=== PATIENT | female | born 1965 | race Two or more races ===

== ENCOUNTER 2017-04-02 14:10 | Inpatient (IN) | payer MEDICAID ==
[~2017-04-02] VITALS: Ht 162.6 cm; Wt 65.5 kg
[~2017-04-02 14:10] MED LIST: ACET-3068 PO; BREX1TAB PO; BUPR300T53 PO; CYAN-19 PO; DOCU-28 PO; GABA600T2 PO; METO10TA3 PO; PANT40SU2 PO; PHE12.5T PO; VENL75CA61 PO; [UNRECOGNIZED DRUG - CODE] PO
[2017-04-02] MEDS ORDERED: ondansetron/PF 4mg/2ml inj IV ONE (15:15)
[2017-04-02 15:50] LABS: BASOPHILS # (AUTO) 0.1 X10'3 (0-0.2); BASOPHILS % (AUTO) 1.2 % (0-1); EOSINOPHILS # (AUTO) 0.1 X10'3 (0-0.9); EOSINOPHILS % (AUTO) 1.3 % (0-6); HEMATOCRIT 33.4 % (35.0-45.0); HEMOGLOBIN 10.9 g/dl (12.0-16.0); LYMPHOCYTES # (AUTO) 2.8 X10'3 (1.1-4.8); LYMPHOCYTES % (AUTO) 41.7 % (21-51); MEAN CORPUSCULAR HGB CONC 32.5 % (33.0-36.5); MEAN CORPUSCULAR VOLUME 83.1 FL (78-98); MEAN PLATELET VOLUME 8.5 FL (7.4-10.4); MONOCYTES # (AUTO) 0.4 X10'3 (0-0.9); MONOCYTES % (AUTO) 6.1 % (2-12); NEUTROPHILS # (AUTO) 3.3 X10'3 (1.8-7.7); NEUTROPHILS % (AUTO) 49.7 % (42-75); PLATELET COUNT 335 X10'3 (140-440); RED BLOOD COUNT 4.01 X10'6 (4.20-5.60); RED CELL DISTRIBUTION WIDTH 21.9 % (11.5-14.5); WHITE BLOOD COUNT 6.7 X10'3 (4.5-11.0)
[2017-04-02 16:08] LABS: ALANINE AMINOTRANSFERASE 49 U/L (12-78); ALBUMIN 1.6 G/DL (3.4-5.0); ALBUMIN/GLOBULIN RATIO 0.3 (1.1-1.5); ALKALINE PHOSPHATASE 159 IU/L (46-116); ANION GAP 5 (8-16); ASPARTATE AMINO TRANSFERASE 58 U/L (10-37); BILIRUBIN,TOTAL 1.2 MG/DL (0.1-1.0); BLOOD UREA NITROGEN 15 MG/DL (7-18); BUN/CREATININE RATIO 21.7 (6.6-38.0); CALCIUM 7.4 MG/DL (8.5-10.1); CHLORIDE 99 MMOL/L (99-107); CREATININE 0.69 MG/DL (0.40-0.90); GLUCOSE 60 MG/DL (70-104); LIPASE 81 U/L (73-393); SODIUM 135 MMOL/L (135-145); TOTAL CARBON DIOXIDE 30.8 MMOL/L (24-32); TROPONIN I < 0.04 NG/ML (0.0-0.05); eGFR 90 ML/MIN
[2017-04-02] MEDS ORDERED: normal saline 500ml IV soln 1,000 ML IV ONE (17:00)
[2017-04-02] MEDS: potassium 10mEq/100ml NS w/LIDOcaine (10mg/bag) IV SCH ×2 (17:10→18:44)
[2017-04-02 18:25] LABS: OCCULT BLOOD STOOL NEGATIVE (Neg)
[2017-04-02] MEDS ORDERED: proMETHazine 25mg tablet PO ONE (18:50)
[2017-04-02] MEDS ORDERED: dextrose 50%-water 50ml dispensing syringe IV ONE ×2 (20:30→21:25)
[2017-04-02 21:15] LABS: BASOPHILS # (AUTO) 0.1 X10'3 (0-0.2); EOSINOPHILS % (AUTO) 0.4 % (0-6); HEMATOCRIT 31.3 % (35.0-45.0); HEMOGLOBIN 10.3 g/dl (12.0-16.0); LYMPHOCYTES # (AUTO) 2.9 X10'3 (1.1-4.8); LYMPHOCYTES % (AUTO) 45.6 % (21-51); MEAN CORPUSCULAR HEMOGLOBIN 27.2 PG (27.0-31.0); MEAN CORPUSCULAR HGB CONC 32.8 % (33.0-36.5); MEAN PLATELET VOLUME 8.4 FL (7.4-10.4); MONOCYTES # (AUTO) 0.2 X10'3 (0-0.9); MONOCYTES % (AUTO) 3.4 % (2-12); NEUTROPHILS # (AUTO) 3.2 X10'3 (1.8-7.7); NEUTROPHILS % (AUTO) 49.6 % (42-75); PLATELET COUNT 275 X10'3 (140-440); RED BLOOD COUNT 3.77 X10'6 (4.20-5.60); RED CELL DISTRIBUTION WIDTH 21.3 % (11.5-14.5); WHITE BLOOD COUNT 6.4 X10'3 (4.5-11.0)
[2017-04-02 21:24] LABS: D-DIMER 0.52 MG/L FEU (0-0.50); INR 1.4 INR; PROTHROMBIN TIME 14.5 SECONDS (9.0-12.0)
[2017-04-02] MEDS ORDERED: normal saline 1000ml 1,000 ML IV ONE (21:25)
[2017-04-02 21:27] LABS: ALANINE AMINOTRANSFERASE 41 U/L (12-78); ALBUMIN 1.4 G/DL (3.4-5.0); ALBUMIN/GLOBULIN RATIO 0.3 (1.1-1.5); ALKALINE PHOSPHATASE 150 IU/L (46-116); ANION GAP 8 (8-16); ASPARTATE AMINO TRANSFERASE 57 U/L (10-37); BLOOD UREA NITROGEN 14 MG/DL (7-18); BUN/CREATININE RATIO 17.3 (6.6-38.0); CALCIUM 6.6 MG/DL (8.5-10.1); CHLORIDE 103 MMOL/L (99-107); CREATININE 0.81 MG/DL (0.40-0.90); GLUCOSE 185 MG/DL (70-104); POTASSIUM 3.4 MMOL/L (3.5-5.1); SODIUM 137 MMOL/L (135-145); TOTAL PROTEIN 6.1 G/DL (6.4-8.2); eGFR 75 ML/MIN
[2017-04-02 21:35] LABS: MAGNESIUM 1.4 MG/DL (1.5-2.4)
[2017-04-02 22:02] LABS: CLARITY,URINE TURBID (Clear); COLOR,URINE YELLOW (Yellow); GLUCOSE, URINE 100 mg/dl (Neg); KETONES,URINE 15 mg/dl (Neg); LEUKOCYTE ESTERASE ,URINE NEGATIVE (Neg); NITRITES, URINE NEGATIVE (Neg); OCCULT BLOOD,URINE TRACE-LYSED (Neg); PH,URINE 6.5 (4.8-8.0); PROTEIN,URINE 30 mg/dl (Neg); UROBILINOGEN,URINE >=8.0 E.U/dL (0.2-1.0)
[2017-04-02 22:20] LABS: UA COLLECTION TYPE STRAIGHT CATH
[2017-04-02 22:26] LABS: BACTERIA,URINE 4+ /HPF (Neg); MUCUS STRANDS MODERATE /LPF (Neg); RBC,URINE NONE SEEN /HPF (0-2); SQUAMOUS EPITHELIAL CELL,UR FEW /LPF (FEW)
[2017-04-02] MEDS ORDERED: diphenhydrAMINE 25mg capsule PO PRN (23:05)
[2017-04-02] MEDS ORDERED: potassium Cl 20 mEq SR tablet PO PRN (23:05)
[2017-04-02] MEDS ORDERED: mag hydrox/Alum hydrox/simeth 30ml oral suspension PO PRN (23:05)
[2017-04-02] MEDS ORDERED: potassium Cl 40MEQ/NS 500ml 500 ML IV PRN ×2 (23:05)
[2017-04-02] MEDS ORDERED: metoclopramide 5 mg/ml inj IV PRN (23:05)
[2017-04-02] MEDS ORDERED: acetaminophen 325mg tablet PO PRN ×2 (23:05)
[2017-04-02] MEDS ORDERED: magnesium 2GM in 50ml NS 50 ML IV PRN (23:05)
[2017-04-02] MEDS ORDERED: morphine 5 MG/ML injection IV PRN ×2 (23:05)
[2017-04-02] MEDS ORDERED: HYDROcodone/acetaminophen 10/325mg tab PO PRN (23:05)
[2017-04-02] MEDS ORDERED: magnesium hydroxide 30ml (MOM) UD suspension PO PRN (23:05)
[2017-04-02] MEDS ORDERED: diphenhydrAMINE 50 mg/ml inj IV PRN (23:05)
[2017-04-02] MEDS ORDERED: magnesium 4gm in 100ml NS 100 ML IV PRN (23:05)
[2017-04-02] MEDS ORDERED: acetaminophen 650mg rectal suppository RC PRN (23:05)
[2017-04-02 23:39] LABS: LIPASE 108 U/L (73-393)
[2017-04-03] MEDS ORDERED: heparin 10,000 units/1 ML INJ IV PRN ×2 (00:05→01:55)
[2017-04-03] MEDS ORDERED: heparin 10,000 units/1 ML INJ IV ONE ×2 (00:05→01:55)
[2017-04-03] MEDS ORDERED: iohexol 350MG/ML 100ml bottle IV ONE (01:03)
[2017-04-03 01:39] LABS: MAGNESIUM 1.5 MG/DL (1.5-2.4)
[2017-04-03 01:40] LABS: TROPONIN I 0.16 NG/ML (0.0-0.05)
[2017-04-03] MEDS: dextrose 5%-1/2 normal saline 1,000 ML IV SCH ×3 (02:04→19:05)
[2017-04-03] MEDS: CefTRIAXone 1 gm/50ml D5W ADV 50 ML IV SCH ×2 (02:42→13:30)
[2017-04-03] MEDS: HYDROcodone/acetaminophen 5mg/325mg tablet PO PRN ×2 (02:48→17:05)
[2017-04-03] MEDS: proMETHazine 25mg tablet PO SCH ×4 (02:49→20:41)
[2017-04-03 02:52] LABS: BASOPHILS # (AUTO) 0.1 X10'3 (0-0.2); BASOPHILS % (AUTO) 0.8 % (0-1); EOSINOPHILS # (AUTO) 0.1 X10'3 (0-0.9); EOSINOPHILS % (AUTO) 1.3 % (0-6); HEMATOCRIT 33.9 % (35.0-45.0); LYMPHOCYTES # (AUTO) 1.5 X10'3 (1.1-4.8); LYMPHOCYTES % (AUTO) 19.6 % (21-51); MEAN CORPUSCULAR HEMOGLOBIN 27.4 PG (27.0-31.0); MEAN CORPUSCULAR HGB CONC 32.6 % (33.0-36.5); MEAN PLATELET VOLUME 8.5 FL (7.4-10.4); MONOCYTES # (AUTO) 0.3 X10'3 (0-0.9); MONOCYTES % (AUTO) 3.9 % (2-12); NEUTROPHILS # (AUTO) 5.6 X10'3 (1.8-7.7); NEUTROPHILS % (AUTO) 74.4 % (42-75); PLATELET COUNT 305 X10'3 (140-440); RED BLOOD COUNT 4.03 X10'6 (4.20-5.60); RED CELL DISTRIBUTION WIDTH 21.4 % (11.5-14.5); WHITE BLOOD COUNT 7.5 X10'3 (4.5-11.0)
[2017-04-03] MEDS: ondansetron/PF 4mg/2ml inj IV PRN (02:53)
[2017-04-03 03:03] VITALS: BP 110/76
[2017-04-03 03:03] LABS: INR 1.4 INR; PARTIAL THROMBOPLASTIN TIME 32 SECONDS (22-32); PROTHROMBIN TIME 14.1 SECONDS (9.0-12.0)
[2017-04-03] MEDS: pantoprazole 40mg Tablet.DR PO SCH (07:31)
[2017-04-03] MEDS: docusate sod 100mg capsule PO SCH ×3 (07:32→20:41)
[2017-04-03] MEDS: atorvastatin 10mg tablet PO SCH (07:34)
[2017-04-03] MEDS: gabapentin 300mg capsule PO SCH ×3 (07:34→20:41)
[2017-04-03 07:45] VITALS: BP 105/51
[2017-04-03] MEDS ORDERED: heparin, porcine 5000 units/ml vial SQ SCH (08:00)
[2017-04-03] MEDS ORDERED: venlafaxine XR 75mg capsule (Q24H) PO SCH ×2 (08:00)
[2017-04-03] MEDS ORDERED: BREXPIPRAZOLE 1 MG PO SCH (08:00)
[2017-04-03] MEDS ORDERED: buPROPion SR 150mg tablet PO SCH (08:00)
[2017-04-03] MEDS: K and/or MAG REPLACEMENT MC SCH (08:00)
[2017-04-03 11:00] VITALS: BP 91/61
[2017-04-03] MEDS: aspirin 325mg tablet PO SCH (13:31)
[2017-04-03] MEDS: magnesium Cl slow-release 64mg tablet PO PRN (13:31)
[2017-04-03] MEDS: potassium Cl 20 mEq SR tablet PO PRN ×2 (13:31→20:41)
[2017-04-03] MEDS: LACTOSE-FREE FOOD 237ML (BOOST) PO SCH (18:33)
[2017-04-03 19:00] VITALS: BP 122/71
[2017-04-03] MEDS: temazepam 15mg capsule PO PRN (20:48)
[2017-04-03 23:00] VITALS: BP 96/68
[2017-04-04] MEDS: dextrose 5%-1/2 normal saline 1,000 ML IV SCH ×3 (02:05→22:50)
[2017-04-04] MEDS: magnesium Cl slow-release 64mg tablet PO PRN (02:06)
[2017-04-04] MEDS: potassium Cl 20 mEq SR tablet PO PRN (02:06)
[2017-04-04] MEDS: proMETHazine 25mg tablet PO SCH ×4 (02:06→21:03)
[2017-04-04 03:00] VITALS: BP 105/70
[2017-04-04 06:41] LABS: BASOPHILS % (AUTO) 0.3 % (0-1); EOSINOPHILS % (AUTO) 0.8 % (0-6); HEMATOCRIT 34.7 % (35.0-45.0); HEMOGLOBIN 11.1 g/dl (12.0-16.0); LYMPHOCYTES # (AUTO) 1.5 X10'3 (1.1-4.8); LYMPHOCYTES % (AUTO) 24.9 % (21-51); MEAN CORPUSCULAR HEMOGLOBIN 27.1 PG (27.0-31.0); MEAN CORPUSCULAR HGB CONC 31.9 % (33.0-36.5); MEAN CORPUSCULAR VOLUME 84.7 FL (78-98); MEAN PLATELET VOLUME 9.4 FL (7.4-10.4); MONOCYTES # (AUTO) 0.3 X10'3 (0-0.9); MONOCYTES % (AUTO) 4.2 % (2-12); NEUTROPHILS # (AUTO) 4.2 X10'3 (1.8-7.7); NEUTROPHILS % (AUTO) 69.8 % (42-75); PLATELET COUNT 264 X10'3 (140-440); RED CELL DISTRIBUTION WIDTH 21.8 % (11.5-14.5)
[2017-04-04 07:00] VITALS: BP 109/77
[2017-04-04] MEDS: pantoprazole 40mg Tablet.DR PO SCH (07:58)
[2017-04-04] MEDS: aspirin 325mg tablet PO SCH (07:58)
[2017-04-04] MEDS: gabapentin 300mg capsule PO SCH ×3 (07:59→21:04)
[2017-04-04] MEDS: atorvastatin 10mg tablet PO SCH (07:59)
[2017-04-04] MEDS: CefTRIAXone 1 gm/50ml D5W ADV 50 ML IV SCH (07:59)
[2017-04-04] MEDS: docusate sod 100mg capsule PO SCH ×4 (07:59→21:03)
[2017-04-04] MEDS: K and/or MAG REPLACEMENT MC SCH (08:00)
[2017-04-04] MEDS: HYDROcodone/acetaminophen 5mg/325mg tablet PO PRN (08:17)
[2017-04-04] MEDS ORDERED: HYDR-3965 PO (10:54)
[2017-04-04] MEDS ORDERED: ZOLP5TAB8 PO (10:54)
[2017-04-04] MEDS ORDERED: SUCR1TAB34 PO (10:54)
[2017-04-04 11:00] VITALS: BP 96/75
[2017-04-04 12:25] LABS: ALBUMIN 1.1 G/DL (3.4-5.0); ANION GAP 7 (8-16); BLOOD UREA NITROGEN 9 MG/DL (7-18); BUN/CREATININE RATIO 11.4 (6.6-38.0); CALCIUM 6.8 MG/DL (8.5-10.1); CHLORIDE 106 MMOL/L (99-107); CREATININE 0.79 MG/DL (0.40-0.90); GLUCOSE 101 MG/DL (70-104); POTASSIUM 3.6 MMOL/L (3.5-5.1); SODIUM 135 MMOL/L (135-145); TOTAL CARBON DIOXIDE 21.6 MMOL/L (24-32); eGFR 77 ML/MIN
[2017-04-04] MEDS: LACTOSE-FREE FOOD 237ML (BOOST) PO SCH ×3 (13:25→18:51)
[2017-04-04] MEDS: lactobacillus rhamnosus 10,000 MMU CELLS/CAPSULE PO SCH (17:51)
[2017-04-04] MEDS: ondansetron/PF 4mg/2ml inj IV PRN (17:51)
[2017-04-04 18:00] VITALS: BP 126/80
[2017-04-04 23:00] VITALS: BP 109/75
[2017-04-05] MEDS: temazepam 15mg capsule PO PRN (01:07)
[2017-04-05] MEDS: proMETHazine 25mg tablet PO SCH ×3 (01:07→12:58)
[2017-04-05 06:35] LABS: BASOPHILS % (AUTO) 0.1 % (0-1); EOSINOPHILS # (AUTO) 0.1 X10'3 (0-0.9); HEMATOCRIT 29.1 % (35.0-45.0); HEMOGLOBIN 9.5 g/dl (12.0-16.0); LYMPHOCYTES # (AUTO) 2.1 X10'3 (1.1-4.8); LYMPHOCYTES % (AUTO) 36.1 % (21-51); MEAN CORPUSCULAR HEMOGLOBIN 27.3 PG (27.0-31.0); MEAN CORPUSCULAR HGB CONC 32.7 % (33.0-36.5); MEAN CORPUSCULAR VOLUME 83.7 FL (78-98); MEAN PLATELET VOLUME 8.5 FL (7.4-10.4); MONOCYTES # (AUTO) 0.3 X10'3 (0-0.9); MONOCYTES % (AUTO) 5.4 % (2-12); NEUTROPHILS # (AUTO) 3.3 X10'3 (1.8-7.7); NEUTROPHILS % (AUTO) 57.4 % (42-75); PLATELET COUNT 243 X10'3 (140-440); RED BLOOD COUNT 3.48 X10'6 (4.20-5.60); RED CELL DISTRIBUTION WIDTH 22.5 % (11.5-14.5); WHITE BLOOD COUNT 5.8 X10'3 (4.5-11.0)
[2017-04-05 07:00] VITALS: BP 114/82
[2017-04-05 07:12] LABS: MAGNESIUM 1.5 MG/DL (1.5-2.4)
[2017-04-05] MEDS: lactobacillus rhamnosus 10,000 MMU CELLS/CAPSULE PO SCH (07:38)
[2017-04-05] MEDS: CefTRIAXone 1 gm/50ml D5W ADV 50 ML IV SCH (07:39)
[2017-04-05] MEDS: pantoprazole 40mg Tablet.DR PO SCH (07:39)
[2017-04-05] MEDS: atorvastatin 10mg tablet PO SCH (07:40)
[2017-04-05] MEDS: docusate sod 100mg capsule PO SCH ×2 (07:40)
[2017-04-05] MEDS: gabapentin 300mg capsule PO SCH ×2 (07:40→12:58)
[2017-04-05] MEDS: dextrose 5%-1/2 normal saline 1,000 ML IV SCH (07:41)
[2017-04-05] MEDS: K and/or MAG REPLACEMENT MC SCH (08:00)
[2017-04-05] MEDS: LACTOSE-FREE FOOD 237ML (BOOST) PO SCH ×2 (08:00→13:21)
[2017-04-05 09:00] LABS: POTASSIUM 3.6 MMOL/L (3.5-5.1)
[2017-04-05] MEDS: aspirin 325mg tablet PO SCH (10:21)
[2017-04-05 11:00] VITALS: BP 99/65
[2017-04-05] MEDS ORDERED: bisacodyl 10mg suppository rectal RC PRN (12:45)
[2017-04-05] MEDS ORDERED: CEPH-572 PO (16:39)
[2017-04-05] MEDS ORDERED: ATOR10TA PO (16:39)
[2017-04-05] MEDS ORDERED: ASPI-1265 PO (16:41)
[2017-04-11] MEDS ORDERED: ACET1TAB12 PO (17:25)
[2017-04-11] MEDS ORDERED: ONDA8TAB9 PO (20:02)
== END 2017-04-05 18:25 | disposition home health service (06) | DRG 424 ==
LOC: ER 14:11 → ED HOLD 23:05 → ORTHO 4S 04-03 01:44
PROVIDERS: ADMIT Family Medicine; ATTEND Internal Medicine
DX: E16.2 Hypoglycemia, unspecified (principal); I21.4 Non-ST elevation (NSTEMI) myocardial infarction; E43 Unspecified severe protein-calorie malnutrition; K92.2 Gastrointestinal hemorrhage, unspecified; E83.42 Hypomagnesemia; N39.0 Urinary tract infection, site not specified; K76.0 Fatty (change of) liver, not elsewhere classified; K21.9 Gastro-esophageal reflux disease without esophagitis; G89.29 Other chronic pain; D63.8 Anemia in other chronic diseases classified elsewhere; F41.9 Anxiety disorder, unspecified; F32.9 Major depressive disorder, single episode, unspecified; E87.6 Hypokalemia; B96.1 Klebsiella pneumoniae [K. pneumoniae] as the cause of diseases classified elsewhere; E73.9 Lactose intolerance, unspecified; Z79.899 Other long term (current) drug therapy; S31.109D Unspecified open wound of abdominal wall, unspecified quadrant without penetration into peritoneal cavity, subsequent encounter; Y92.89 Other specified places as the place of occurrence of the external cause
CPT/HCPCS: 36415; 70450; 70551; 71275; 74000; 74176; 80048; 80053; 81001; 82272; 82948; 83605; 83690; 83735; 83880; 84132; 84145; 84484; 85025; 85379; 85610; 85730; 87040; 87070; 87077; 87088; 87186; 93005; 93306; 96365; 96366; 97110; 97116; 97161; 99285; A4353; J0696; J1644; J2405; J2765; J3480; J7030; Q0169; Q9967

== ENCOUNTER 2017-05-28 08:07 | Day surgery (SDC) | payer OTHER ==
[~2017-05-28] VITALS: Ht 162.6 cm; Wt 71.8 kg
[~2017-05-28 08:07] MED LIST changes: -ACET-3068 PO; +ACET1TAB12 PO; +ATOR10TA PO; -BREX1TAB PO; -BUPR300T53 PO; -CYAN-19 PO; +LIDOcaine 1%/PF (10mg/ml) 5ml vial ONE; +ONDA8TAB9 PO; +SUCR1TAB34 PO; -VENL75CA61 PO; +ZOLP5TAB8 PO; -[UNRECOGNIZED DRUG - CODE] PO; +fentaNYL/PF 50MCG/1 ML 2ML syringe ONE
[2017-05-28 08:20] VITALS: BP 106/68
[2017-05-28] MEDS ORDERED: OXYC10TA57 PO (09:10)
[2017-05-28 10:10] VITALS: BP 122/69
[2017-05-28 10:22] VITALS: BP 117/72
[2017-05-28 10:37] VITALS: BP 110/69
[2017-05-28 10:52] VITALS: BP 120/68
[2017-05-28 11:00] VITALS: BP 107/69
== END 2017-05-28 11:20 ==
LOC: SSTAY O 08:07
PROVIDERS: ATTEND Radiology Diagnostic Radiology
DX: T80.219A Unspecified infection due to central venous catheter, initial encounter (principal); F41.9 Anxiety disorder, unspecified; F32.9 Major depressive disorder, single episode, unspecified; G89.29 Other chronic pain; M54.9 Dorsalgia, unspecified; K21.9 Gastro-esophageal reflux disease without esophagitis; Y83.8 Other surgical procedures as the cause of abnormal reaction of the patient, or of later complication, without mention of misadventure at the time of the procedure; Y92.9 Unspecified place or not applicable
CPT/HCPCS: 36589; A6449; J2001; J3010

== ENCOUNTER 2017-07-21 08:14 | Emergency (ER) | payer MEDICAID ==
[~2017-07-21] VITALS: Ht 162.6 cm; Wt 72.0 kg
[~2017-07-21 08:14] MED LIST changes: -ACET1TAB12 PO; -ATOR10TA PO; -LIDOcaine 1%/PF (10mg/ml) 5ml vial ONE; -METO10TA3 PO; -ONDA8TAB9 PO; +OXYC10TA57 PO; -PHE12.5T PO; -SUCR1TAB34 PO; -fentaNYL/PF 50MCG/1 ML 2ML syringe ONE
[2017-07-21] MEDS ORDERED: morphine 4 MG/ML inj SYRINge IV ONE (08:50)
[2017-07-21] MEDS ORDERED: orphenadrine citrate 60mg/2ml inj. IM ONE (08:50)
[2017-07-21] MEDS ORDERED: normal saline 1000ml 1,000 ML IV ONE (08:50)
[2017-07-21] MEDS ORDERED: fentaNYL/PF 50MCG/1 ML 2ML syringe IV ONE (09:30)
[2017-07-21] MEDS ORDERED: fentaNYL/PF 50MCG/1 ML 2ML syringe IV PRN (10:35)
[2017-07-21] MEDS ORDERED: CYCL-1 PO (11:09)
[2017-07-21] MEDS ORDERED: HYDR-3965 PO (11:09)
[2017-07-21] MEDS ORDERED: LIDO700A32 TOP (11:19)
[2017-07-21 11:23] VITALS: BP 101/61
== END 2017-07-21 11:15 | disposition home or self-care (01) ==
LOC: ER 08:14
DX: M54.5 Low back pain (principal); K21.9 Gastro-esophageal reflux disease without esophagitis; G89.29 Other chronic pain; Z90.49 Acquired absence of other specified parts of digestive tract; Z98.84 Bariatric surgery status
CPT/HCPCS: 96361; 96372; 96374; 96375; 99284; J2270; J2360; J3010; J7030

== ENCOUNTER 2017-10-14 11:56 | Day surgery (SDC) | payer MEDICAID ==
[~2017-10-14] VITALS: Ht 162.6 cm; Wt 72.3 kg
[~2017-10-14 11:56] MED LIST changes: +CYCL-1 PO; +LIDO700A32 TOP
[2017-10-14 12:04] VITALS: BP 123/83
[2017-10-14] MEDS ORDERED: MORP30TA PO (12:17)
[2017-10-14] MEDS ORDERED: MELA3TAB PO (12:18)
[2017-10-14] MEDS ORDERED: fentaNYL/PF 50MCG/1 ML 2ML syringe ONE (12:23)
[2017-10-14] MEDS ORDERED: MIDAZolam 5mg/5ml vial ONE (12:24)
[2017-10-14] MEDS ORDERED: LIDOcaine Viscous 15ml cup ONE (12:24)
[2017-10-14 13:43] VITALS: BP 122/67
[2017-10-14 13:53] VITALS: BP 110/81
[2017-10-14 14:03] VITALS: BP 128/83
[2017-10-14 14:13] VITALS: BP 118/73
[2017-10-23] MEDS ORDERED: MORP30CA17 PO (23:57)
== END 2017-10-14 14:25 | disposition home or self-care (01) ==
LOC: GI LAB 11:56
PROVIDERS: ATTEND Internal Medicine Gastroenterology
DX: K22.2 Esophageal obstruction (principal); F31.89 Other bipolar disorder; F41.9 Anxiety disorder, unspecified; K21.9 Gastro-esophageal reflux disease without esophagitis; Z98.0 Intestinal bypass and anastomosis status; Z91.011 Allergy to milk products; Z87.891 Personal history of nicotine dependence; Z90.49 Acquired absence of other specified parts of digestive tract; Z90.89 Acquired absence of other organs; Z98.51 Tubal ligation status; Z79.891 Long term (current) use of opiate analgesic; Z79.2 Long term (current) use of antibiotics; Z79.899 Other long term (current) drug therapy; Z98.890 Other specified postprocedural states
CPT/HCPCS: 43235; 99152; J2250; J3010; J7030; A4620; G0500

== ENCOUNTER 2018-01-09 17:36 | Emergency (ER) | payer MEDICAID ==
[~2018-01-09] VITALS: Ht 149.9 cm; Wt 61.8 kg
[~2018-01-09 17:36] MED LIST changes: -DOCU-28 PO; +FERR15DR PO; -LIDO700A32 TOP; +MELA3TAB PO; +MORP30CA17 PO; -OXYC10TA57 PO; -ZOLP5TAB8 PO
[2018-01-09] MEDS ORDERED: normal saline 1000ML IV soln IVB ONE ×2 (19:55→23:55)
[2018-01-09 20:09] LABS: ALANINE AMINOTRANSFERASE 114 U/L (12-78); ALBUMIN/GLOBULIN RATIO 0.5 (1.1-1.5); ALKALINE PHOSPHATASE 222 IU/L (46-116); ANION GAP 11 (8-16); ASPARTATE AMINO TRANSFERASE 146 U/L (10-37); BILIRUBIN,TOTAL 0.8 MG/DL (0.1-1.0); BLOOD UREA NITROGEN 9 MG/DL (7-18); BUN/CREATININE RATIO 13.8 (6.6-38.0); CALCIUM 8.1 MG/DL (8.5-10.1); CHLORIDE 104 MMOL/L (99-107); CREATININE 0.65 MG/DL (0.40-0.90); GLUCOSE 72 MG/DL (70-104); SODIUM 137 MMOL/L (135-145); TOTAL CARBON DIOXIDE 21.7 MMOL/L (24-32); TOTAL PROTEIN 6.4 G/DL (6.4-8.2); eGFR > 90 ML/MIN
[2018-01-09 20:10] LABS: POTASSIUM 3.4 MMOL/L (3.5-5.1)
[2018-01-09 20:16] LABS: BASOPHILS % (AUTO) 0.7 % (0-1); EOSINOPHILS % (AUTO) 0 % (0-6); HEMATOCRIT 31.9 % (35.0-45.0); HEMOGLOBIN 10.7 g/dl (12.0-16.0); LYMPHOCYTES # (AUTO) 1.8 X10'3 (1.1-4.8); LYMPHOCYTES % (AUTO) 26.9 % (21-51); MEAN CORPUSCULAR HEMOGLOBIN 26.9 PG (27.0-31.0); MEAN CORPUSCULAR HGB CONC 33.6 % (33.0-36.5); MEAN CORPUSCULAR VOLUME 79.9 FL (78-98); MEAN PLATELET VOLUME 8.7 FL (7.4-10.4); MONOCYTES # (AUTO) 0.3 X10'3 (0-0.9); MONOCYTES % (AUTO) 4.5 % (2-12); NEUTROPHILS # (AUTO) 4.4 X10'3 (1.8-7.7); NEUTROPHILS % (AUTO) 67.9 % (42-75); PLATELET COUNT 380 X10'3 (140-440); RED BLOOD COUNT 3.99 X10'6 (4.20-5.60); RED CELL DISTRIBUTION WIDTH 23.9 % (11.5-14.5); WHITE BLOOD COUNT 6.6 X10'3 (4.5-11.0)
[2018-01-09 20:18] LABS: MAGNESIUM 1.9 MG/DL (1.5-2.4)
[2018-01-09 21:37] LABS: PLATELET ESTIMATE NORMAL
[2018-01-09 21:38] LABS: ANISOCYTOSIS 3+
[2018-01-09 21:40] LABS: ELLIPTOCYTES 1+; MICROCYTOSIS 1+; TARGET CELLS 1+
[2018-01-09 21:57] LABS: CLARITY,URINE CLEAR (Clear); COLOR,URINE YELLOW (Yellow); GLUCOSE, URINE NEGATIVE (Neg); KETONES,URINE >=80 mg/dl (Neg); LEUKOCYTE ESTERASE ,URINE NEGATIVE (Neg); NITRITES, URINE NEGATIVE (Neg); OCCULT BLOOD,URINE TRACE-INTACT (Neg); PROTEIN,URINE NEGATIVE (Neg)
[2018-01-09 22:01] LABS: UA COLLECTION TYPE STRAIGHT CATH
[2018-01-09 22:04] LABS: BACTERIA,URINE NONE SEEN /HPF (Neg); MUCUS STRANDS NONE SEEN /LPF (Neg); SQUAMOUS EPITHELIAL CELL,UR FEW /LPF (FEW); WBC,URINE 0-4 /HPF (0-4)
[2018-01-10] MEDS ORDERED: ONDA8TAB13 (00:31)
[2018-01-10] MEDS ORDERED: DOCU-267 (00:31)
[2018-01-10] MEDS ORDERED: dextrose 50%-water 50ml dispensing syringe IV ONE ×2 (00:40)
[2018-01-10] MEDS ORDERED: normal saline 1000ml 1,000 ML IV ONE ×2 (00:40→01:15)
[2018-01-10] MEDS ORDERED: ondansetron/PF 4mg/2ml inj IV ONE (02:50)
[2018-01-10] MEDS ORDERED: morphine 4 MG/ML inj SYRINge IV ONE (07:40)
[2018-01-10 11:00] VITALS: BP 111/71
== END 2018-01-10 11:35 | disposition home or self-care (01) ==
LOC: ER 17:37
DX: R53.1 Weakness (principal); R74.0 Nonspecific elevation of levels of transaminase and lactic acid dehydrogenase [LDH]; D50.9 Iron deficiency anemia, unspecified; K21.9 Gastro-esophageal reflux disease without esophagitis; G89.29 Other chronic pain; Z98.84 Bariatric surgery status; Z90.49 Acquired absence of other specified parts of digestive tract; Z88.8 Allergy status to other drugs, medicaments and biological substances; Z79.899 Other long term (current) drug therapy; Z91.011 Allergy to milk products
CPT/HCPCS: 36415; 71045; 74176; 80053; 81001; 82948; 83735; 83880; 84439; 84443; 84484; 85025; 93005; 96374; 96375; 99285; J2270; J2405; J7030

== ENCOUNTER 2018-03-05 19:54 | Emergency (ER) | payer MEDICAID ==
[~2018-03-05] VITALS: Ht 160 cm; Wt 58.0 kg
[~2018-03-05 19:54] MED LIST changes: -CYCL-1 PO; +DOCU-267 PO; -FERR15DR PO; -MORP30CA17 PO; +ONDA8TAB13; +PROM25TA14 PO; +ZOLP10TA5 PO
[2018-03-05 20:31] LABS: BASOPHILS % (AUTO) 0.7 % (0-1); EOSINOPHILS % (AUTO) 0.2 % (0-6); HEMATOCRIT 36.7 % (35.0-45.0); HEMOGLOBIN 12.7 g/dl (12.0-16.0); LYMPHOCYTES % (AUTO) 38.3 % (21-51); MEAN CORPUSCULAR HGB CONC 34.6 % (33.0-36.5); MEAN CORPUSCULAR VOLUME 92.4 FL (78-98); MEAN PLATELET VOLUME 8.6 FL (7.4-10.4); MONOCYTES # (AUTO) 0.3 X10'3 (0-0.9); MONOCYTES % (AUTO) 6.3 % (2-12); NEUTROPHILS # (AUTO) 2.9 X10'3 (1.8-7.7); NEUTROPHILS % (AUTO) 54.5 % (42-75); PLATELET COUNT 299 X10'3 (140-440); RED BLOOD COUNT 3.97 X10'6 (4.20-5.60); RED CELL DISTRIBUTION WIDTH 16.5 % (11.5-14.5); WHITE BLOOD COUNT 5.2 X10'3 (4.5-11.0)
[2018-03-05 20:41] LABS: INR 1.1 INR; PROTHROMBIN TIME 11.5 SECONDS (9.0-12.0)
[2018-03-05 20:43] LABS: ALANINE AMINOTRANSFERASE 61 U/L (12-78); ALBUMIN/GLOBULIN RATIO 0.4 (1.1-1.5); ALKALINE PHOSPHATASE 192 IU/L (46-116); ANION GAP 14 (8-16); ASPARTATE AMINO TRANSFERASE 90 U/L (10-37); BILIRUBIN,TOTAL 0.9 MG/DL (0.1-1.0); BLOOD UREA NITROGEN 15 MG/DL (7-18); BUN/CREATININE RATIO 12.7 (6.6-38.0); CALCIUM 7.9 MG/DL (8.5-10.1); CHLORIDE 103 MMOL/L (99-107); CREATININE 1.18 MG/DL (0.40-0.90); GLUCOSE 92 MG/DL (70-104); POTASSIUM 3.5 MMOL/L (3.5-5.1); SODIUM 137 MMOL/L (135-145); TOTAL CARBON DIOXIDE 19.7 MMOL/L (24-32); TOTAL PROTEIN 6.8 G/DL (6.4-8.2); eGFR 48 ML/MIN
[2018-03-05 21:15] LABS: LIPASE 94 U/L (73-393)
[2018-03-05] MEDS ORDERED: ondansetron/PF 4mg/2ml inj IV ONE (21:25)
[2018-03-05] MEDS ORDERED: normal saline 1000ML IV soln IVB ONE (21:45)
[2018-03-05 22:04] LABS: CLARITY,URINE CLEAR (Clear); COLOR,URINE YELLOW (Yellow); GLUCOSE, URINE NEGATIVE (Neg); KETONES,URINE NEGATIVE (Neg); LEUKOCYTE ESTERASE ,URINE MODERATE (Neg); NITRITES, URINE NEGATIVE (Neg); OCCULT BLOOD,URINE NEGATIVE (Neg); PH,URINE 7.5 (4.8-8.0); PROTEIN,URINE NEGATIVE (Neg)
[2018-03-05 22:11] LABS: UA COLLECTION TYPE CLN CATCH MIDSTREAM; URINE HCG NEGATIVE (NEG)
[2018-03-05 22:13] LABS: BACTERIA,URINE 1+ /HPF (Neg); CAL OXALATE CRYSTALS FEW /HPF (NEGATIVE); MUCUS STRANDS MANY /LPF (Neg); RBC,URINE 0-2 /HPF (0-2); SQUAMOUS EPITHELIAL CELL,UR FEW /LPF (FEW)
[2018-03-05 22:45] VITALS: BP 102/76
== END 2018-03-05 22:50 | disposition home or self-care (01) ==
LOC: ER 19:54
DX: R10.12 Left upper quadrant pain (principal); R11.2 Nausea with vomiting, unspecified; K21.9 Gastro-esophageal reflux disease without esophagitis; G89.29 Other chronic pain; Z98.890 Other specified postprocedural states; Z90.49 Acquired absence of other specified parts of digestive tract; Z98.84 Bariatric surgery status; Z91.011 Allergy to milk products; Z79.899 Other long term (current) drug therapy
CPT/HCPCS: 36415; 80053; 81001; 81025; 82948; 83690; 85025; 85610; 87077; 87088; 87186; 96374; 99284; J2405

== ENCOUNTER 2018-03-10 15:40 | Inpatient (IN) | payer MEDICAID ==
[~2018-03-10] VITALS: Ht 162.6 cm; Wt 57.7 kg
[2018-03-10] MEDS ORDERED: normal saline 1000ML IV soln IVB ONE (17:20)
[2018-03-10 18:18] LABS: BASOPHILS % (AUTO) 0.9 % (0-1); EOSINOPHILS % (AUTO) 0.5 % (0-6); HEMATOCRIT 36.7 % (35.0-45.0); HEMOGLOBIN 12.3 g/dl (12.0-16.0); LYMPHOCYTES # (AUTO) 2.1 X10'3 (1.1-4.8); LYMPHOCYTES % (AUTO) 42.5 % (21-51); MEAN CORPUSCULAR HEMOGLOBIN 31.7 PG (27.0-31.0); MEAN CORPUSCULAR HGB CONC 33.5 % (33.0-36.5); MEAN CORPUSCULAR VOLUME 94.6 FL (78-98); MEAN PLATELET VOLUME 8.2 FL (7.4-10.4); MONOCYTES # (AUTO) 0.2 X10'3 (0-0.9); MONOCYTES % (AUTO) 4.8 % (2-12); NEUTROPHILS # (AUTO) 2.6 X10'3 (1.8-7.7); NEUTROPHILS % (AUTO) 51.3 % (42-75); PLATELET COUNT 284 X10'3 (140-440); RED BLOOD COUNT 3.88 X10'6 (4.20-5.60); RED CELL DISTRIBUTION WIDTH 17.1 % (11.5-14.5)
[2018-03-10 18:25] LABS: ALANINE AMINOTRANSFERASE 52 U/L (12-78); ALBUMIN/GLOBULIN RATIO 0.4 (1.1-1.5); ALKALINE PHOSPHATASE 179 IU/L (46-116); ANION GAP 4 (8-16); ASPARTATE AMINO TRANSFERASE 70 U/L (10-37); BILIRUBIN,TOTAL 0.8 MG/DL (0.1-1.0); BLOOD UREA NITROGEN 17 MG/DL (7-18); BUN/CREATININE RATIO 19.8 (6.6-38.0); CALCIUM 8.1 MG/DL (8.5-10.1); CHLORIDE 105 MMOL/L (99-107); CREATININE 0.86 MG/DL (0.40-0.90); GLUCOSE 81 MG/DL (70-104); LIPASE 65 U/L (73-393); POTASSIUM 4.5 MMOL/L (3.5-5.1); SODIUM 138 MMOL/L (135-145); TOTAL CARBON DIOXIDE 28.9 MMOL/L (24-32); TOTAL PROTEIN 6.6 G/DL (6.4-8.2); eGFR 70 ML/MIN
[2018-03-10] MEDS ORDERED: bisacodyl 10mg suppository rectal RC PRN (19:10)
[2018-03-10] MEDS ORDERED: HYDROmorphone 1 mg/ml syringe IV PRN ×2 (19:10)
[2018-03-10] MEDS ORDERED: mag hydrox/Alum hydrox/simeth 30ml oral suspension PO PRN (19:10)
[2018-03-10] MEDS ORDERED: magnesium hydroxide 30ml (MOM) UD suspension PO PRN (19:10)
[2018-03-10] MEDS ORDERED: diphenhydrAMINE 25mg capsule PO PRN (19:10)
[2018-03-10] MEDS ORDERED: morphine 2 MG/ML inj. syringe IV PRN (19:10)
[2018-03-10] MEDS ORDERED: acetaminophen 325mg tablet PO PRN ×2 (19:10)
[2018-03-10] MEDS ORDERED: metoclopramide 5 mg/ml inj IV PRN (19:10)
[2018-03-10] MEDS ORDERED: diphenhydrAMINE 50 mg/ml inj IV PRN (19:10)
[2018-03-10] MEDS ORDERED: acetaminophen 650mg rectal suppository RC PRN (19:10)
[2018-03-10 19:37] LABS: MAGNESIUM 1.7 MG/DL (1.5-2.4); PHOSPHORUS 3.6 MG/DL (2.3-4.5)
[2018-03-10] MEDS: docusate sod 100mg capsule PO SCH (20:09)
[2018-03-10] MEDS: dextrose 5%-1/2 normal saline 1,000 ML IV SCH (20:09)
[2018-03-10] MEDS: pantoprazole 40 MG vial IV SCH (20:09)
[2018-03-10 21:39] VITALS: BP 111/67
[2018-03-10] MEDS: temazepam 15mg capsule PO PRN (22:51)
[2018-03-10 23:48] VITALS: BP 103/71
[2018-03-11] MEDS: morphine 2 MG/ML inj. syringe IV PRN ×2 (01:16→05:20)
[2018-03-11] MEDS: dextrose 5%-1/2 normal saline 1,000 ML IV SCH ×3 (05:17→20:09)
[2018-03-11 06:42] LABS: BASOPHILS # (AUTO) 0.1 X10'3 (0-0.2); BASOPHILS % (AUTO) 1.4 % (0-1); EOSINOPHILS # (AUTO) 0.1 X10'3 (0-0.9); EOSINOPHILS % (AUTO) 1.6 % (0-6); HEMATOCRIT 35.8 % (35.0-45.0); HEMOGLOBIN 11.9 g/dl (12.0-16.0); LYMPHOCYTES # (AUTO) 2.4 X10'3 (1.1-4.8); LYMPHOCYTES % (AUTO) 53.1 % (21-51); MEAN CORPUSCULAR HEMOGLOBIN 31.5 PG (27.0-31.0); MEAN CORPUSCULAR HGB CONC 33.1 % (33.0-36.5); MEAN CORPUSCULAR VOLUME 95.1 FL (78-98); MEAN PLATELET VOLUME 8.5 FL (7.4-10.4); MONOCYTES # (AUTO) 0.3 X10'3 (0-0.9); NEUTROPHILS # (AUTO) 1.7 X10'3 (1.8-7.7); NEUTROPHILS % (AUTO) 37.9 % (42-75); PLATELET COUNT 243 X10'3 (140-440); RED BLOOD COUNT 3.77 X10'6 (4.20-5.60); RED CELL DISTRIBUTION WIDTH 17.2 % (11.5-14.5); WHITE BLOOD COUNT 4.5 X10'3 (4.5-11.0)
[2018-03-11 06:58] LABS: ALANINE AMINOTRANSFERASE 46 U/L (12-78); ALBUMIN 1.7 G/DL (3.4-5.0); ALBUMIN/GLOBULIN RATIO 0.4 (1.1-1.5); ALKALINE PHOSPHATASE 158 IU/L (46-116); ANION GAP 7 (8-16); ASPARTATE AMINO TRANSFERASE 59 U/L (10-37); BILIRUBIN,TOTAL 0.6 MG/DL (0.1-1.0); BLOOD UREA NITROGEN 12 MG/DL (7-18); CALCIUM 7.9 MG/DL (8.5-10.1); CHLORIDE 108 MMOL/L (99-107); GLUCOSE 82 MG/DL (70-104); POTASSIUM 3.2 MMOL/L (3.5-5.1); SODIUM 142 MMOL/L (135-145); TOTAL CARBON DIOXIDE 26.7 MMOL/L (24-32); TOTAL PROTEIN 5.9 G/DL (6.4-8.2); eGFR 76 ML/MIN
[2018-03-11] MEDS: docusate sod 100mg capsule PO SCH (07:19)
[2018-03-11 07:30] VITALS: BP 100/67
[2018-03-11] MEDS: pantoprazole 40 MG vial IV SCH (08:29)
[2018-03-11] MEDS ORDERED: magnesium 4gm in 100ml NS 100 ML IV PRN (09:45)
[2018-03-11] MEDS ORDERED: magnesium Cl slow-release 64mg tablet PO PRN (09:45)
[2018-03-11] MEDS ORDERED: potassium Cl 40MEQ/NS 500ml 500 ML IV PRN (09:45)
[2018-03-11] MEDS ORDERED: potassium Cl 20 mEq SR tablet PO PRN ×2 (09:45)
[2018-03-11] MEDS ORDERED: proMETHazine 25mg tablet PO PRN (09:45)
[2018-03-11 11:00] VITALS: BP 100/62
[2018-03-11] MEDS ORDERED: polyvinyl alcohol ophthalmic drops 15ml bottle EACHEYE SCH (12:20)
[2018-03-11] MEDS ORDERED: CARBOXYMETHYLCELLULOSE SODIUM 15 ML DROPS EACHEYE SCH (12:52)
[2018-03-11 13:45] VITALS: BP 97/64
[2018-03-11] MEDS: gabapentin 300mg capsule PO SCH ×2 (14:01→20:10)
[2018-03-11] MEDS: potassium Cl 40MEQ/NS 500ml 500 ML IV PRN (14:04)
[2018-03-11] MEDS: CARBOXYMETHYLCELLULOSE SODIUM 15 ML DROPS EACHEYE SCH ×3 (14:07→20:10)
[2018-03-11] MEDS: HYDROcodone/acetaminophen 10/325mg tab PO PRN ×2 (18:43→22:51)
[2018-03-11 20:00] VITALS: BP 116/77
[2018-03-11] MEDS: Melatonin 3mg tablet PO SCH (20:10)
[2018-03-12] VITALS: BP 121/80
[2018-03-12] MEDS: CARBOXYMETHYLCELLULOSE SODIUM 15 ML DROPS EACHEYE SCH ×7 (00:07→23:42)
[2018-03-12 00:13] VITALS: BP 165/69
[2018-03-12 06:34] LABS: BASOPHILS % (AUTO) 0.7 % (0-1); EOSINOPHILS % (AUTO) 0.8 % (0-6); HEMATOCRIT 34.7 % (35.0-45.0); HEMOGLOBIN 11.5 g/dl (12.0-16.0); LYMPHOCYTES # (AUTO) 2.8 X10'3 (1.1-4.8); LYMPHOCYTES % (AUTO) 57.9 % (21-51); MEAN CORPUSCULAR HEMOGLOBIN 31.6 PG (27.0-31.0); MEAN CORPUSCULAR HGB CONC 33.1 % (33.0-36.5); MEAN CORPUSCULAR VOLUME 95.4 FL (78-98); MEAN PLATELET VOLUME 8.4 FL (7.4-10.4); MONOCYTES # (AUTO) 0.3 X10'3 (0-0.9); MONOCYTES % (AUTO) 7.3 % (2-12); NEUTROPHILS # (AUTO) 1.6 X10'3 (1.8-7.7); NEUTROPHILS % (AUTO) 33.3 % (42-75); PLATELET COUNT 248 X10'3 (140-440); RED BLOOD COUNT 3.63 X10'6 (4.20-5.60); RED CELL DISTRIBUTION WIDTH 17.2 % (11.5-14.5); WHITE BLOOD COUNT 4.8 X10'3 (4.5-11.0)
[2018-03-12 06:51] LABS: ALANINE AMINOTRANSFERASE 48 U/L (12-78); ALBUMIN 1.6 G/DL (3.4-5.0); ALBUMIN/GLOBULIN RATIO 0.4 (1.1-1.5); ALKALINE PHOSPHATASE 148 IU/L (46-116); ANION GAP 8 (8-16); ASPARTATE AMINO TRANSFERASE 63 U/L (10-37); BILIRUBIN,TOTAL 0.5 MG/DL (0.1-1.0); BLOOD UREA NITROGEN 5 MG/DL (7-18); BUN/CREATININE RATIO 7.1 (6.6-38.0); CALCIUM 7.9 MG/DL (8.5-10.1); CHLORIDE 108 MMOL/L (99-107); GLUCOSE 88 MG/DL (70-104); POTASSIUM 3.4 MMOL/L (3.5-5.1); SODIUM 141 MMOL/L (135-145); TOTAL CARBON DIOXIDE 25.1 MMOL/L (24-32); TOTAL PROTEIN 5.6 G/DL (6.4-8.2); eGFR 88 ML/MIN
[2018-03-12 07:00] VITALS: BP 105/63
[2018-03-12] MEDS ORDERED: non-formulary drug (Pantoprazole Sodium (Protonix) 40 MG) PO SCH (08:00)
[2018-03-12] MEDS ORDERED: BARIUM SULFATE 340 ML SUSP.RECON***PROCEDURE AREA ONLY**DONT ENTER PO ONE (08:38)
[2018-03-12] MEDS: enoxaparin 40mg/0.4ml syringe SUBCUT SCH (08:52)
[2018-03-12] MEDS: pantoprazole 40 MG vial IV SCH (08:52)
[2018-03-12] MEDS: gabapentin 300mg capsule PO SCH ×3 (10:41→20:04)
[2018-03-12] MEDS: HYDROcodone/acetaminophen 10/325mg tab PO PRN (10:42)
[2018-03-12] MEDS: docusate sod 100mg capsule PO SCH (10:42)
[2018-03-12 11:00] VITALS: BP 91/50
[2018-03-12] MEDS: dextrose 5%-1/2 normal saline 1,000 ML IV SCH ×2 (11:09→20:04)
[2018-03-12] MEDS: ondansetron/PF 4mg/2ml inj IV PRN (12:25)
[2018-03-12 12:43] LABS: TOTAL CELLS COUNTED 100
[2018-03-12 12:45] LABS: ANISOCYTOSIS 1+; PLATELET ESTIMATE NORMAL; TARGET CELLS 1+
[2018-03-12 18:00] VITALS: BP 104/55
[2018-03-12] MEDS: Melatonin 3mg tablet PO SCH (20:05)
[2018-03-12] MEDS: potassium Cl 40MEQ/NS 500ml 500 ML IV PRN (21:45)
[2018-03-12] MEDS: zolpidem 5mg tablet PO PRN (21:51)
[2018-03-13] VITALS: BP 104/53
[2018-03-13] MEDS: CARBOXYMETHYLCELLULOSE SODIUM 15 ML DROPS EACHEYE SCH ×6 (03:36→23:36)
[2018-03-13 06:01] LABS: BASOPHILS % (AUTO) 0.8 % (0-1); EOSINOPHILS # (AUTO) 0.1 X10'3 (0-0.9); EOSINOPHILS % (AUTO) 1.4 % (0-6); HEMATOCRIT 32.5 % (35.0-45.0); HEMOGLOBIN 10.9 g/dl (12.0-16.0); LYMPHOCYTES % (AUTO) 39.9 % (21-51); MEAN CORPUSCULAR HEMOGLOBIN 31.9 PG (27.0-31.0); MEAN CORPUSCULAR HGB CONC 33.7 % (33.0-36.5); MEAN CORPUSCULAR VOLUME 94.8 FL (78-98); MEAN PLATELET VOLUME 8.2 FL (7.4-10.4); MONOCYTES # (AUTO) 0.3 X10'3 (0-0.9); MONOCYTES % (AUTO) 6.5 % (2-12); NEUTROPHILS # (AUTO) 2.6 X10'3 (1.8-7.7); NEUTROPHILS % (AUTO) 51.4 % (42-75); PLATELET COUNT 231 X10'3 (140-440); RED BLOOD COUNT 3.42 X10'6 (4.20-5.60); RED CELL DISTRIBUTION WIDTH 17.6 % (11.5-14.5); WHITE BLOOD COUNT 5.1 X10'3 (4.5-11.0)
[2018-03-13 06:31] LABS: ALANINE AMINOTRANSFERASE 47 U/L (12-78); ALBUMIN 1.5 G/DL (3.4-5.0); ALBUMIN/GLOBULIN RATIO 0.4 (1.1-1.5); ALKALINE PHOSPHATASE 145 IU/L (46-116); ANION GAP 8 (8-16); ASPARTATE AMINO TRANSFERASE 70 U/L (10-37); BILIRUBIN,TOTAL 0.5 MG/DL (0.1-1.0); BLOOD UREA NITROGEN 4 MG/DL (7-18); BUN/CREATININE RATIO 6.3 (6.6-38.0); CALCIUM 7.6 MG/DL (8.5-10.1); CHLORIDE 108 MMOL/L (99-107); CREATININE 0.64 MG/DL (0.40-0.90); GLUCOSE 86 MG/DL (70-104); POTASSIUM 3.9 MMOL/L (3.5-5.1); SODIUM 140 MMOL/L (135-145); TOTAL CARBON DIOXIDE 23.6 MMOL/L (24-32); TOTAL PROTEIN 5.3 G/DL (6.4-8.2); eGFR > 90 ML/MIN
[2018-03-13 08:00] VITALS: BP 112/58
[2018-03-13] MEDS: gabapentin 300mg capsule PO SCH ×3 (09:06→21:01)
[2018-03-13] MEDS: enoxaparin 40mg/0.4ml syringe SUBCUT SCH (09:06)
[2018-03-13] MEDS: docusate sod 100mg capsule PO SCH (09:07)
[2018-03-13] MEDS: pantoprazole 40 MG vial IV SCH (09:07)
[2018-03-13] MEDS: HYDROcodone/acetaminophen 10/325mg tab PO PRN ×3 (09:07→19:14)
[2018-03-13] MEDS: dextrose 5%-1/2 normal saline 1,000 ML IV SCH ×2 (09:08→18:15)
[2018-03-13 12:00] VITALS: BP 100/52
[2018-03-13 18:00] VITALS: BP 94/63
[2018-03-13] MEDS: ondansetron/PF 4mg/2ml inj IV PRN (20:22)
[2018-03-13] MEDS: Melatonin 3mg tablet PO SCH (21:00)
[2018-03-13] MEDS: zolpidem 5mg tablet PO PRN (22:25)
[2018-03-14] VITALS: BP 97/57
[2018-03-14] MEDS: dextrose 5%-1/2 normal saline 1,000 ML IV SCH ×3 (03:09→23:09)
[2018-03-14] MEDS: CARBOXYMETHYLCELLULOSE SODIUM 15 ML DROPS EACHEYE SCH ×7 (04:31→23:35)
[2018-03-14 07:00] VITALS: BP 109/76
[2018-03-14 07:22] LABS: BASOPHILS # (AUTO) 0.1 X10'3 (0-0.2); BASOPHILS % (AUTO) 1.9 % (0-1); EOSINOPHILS # (AUTO) 0.1 X10'3 (0-0.9); EOSINOPHILS % (AUTO) 1.3 % (0-6); HEMATOCRIT 32.6 % (35.0-45.0); HEMOGLOBIN 10.9 g/dl (12.0-16.0); LYMPHOCYTES # (AUTO) 2.1 X10'3 (1.1-4.8); LYMPHOCYTES % (AUTO) 51.8 % (21-51); MEAN CORPUSCULAR HEMOGLOBIN 31.9 PG (27.0-31.0); MEAN CORPUSCULAR HGB CONC 33.4 % (33.0-36.5); MEAN CORPUSCULAR VOLUME 95.6 FL (78-98); MEAN PLATELET VOLUME 8.9 FL (7.4-10.4); MONOCYTES # (AUTO) 0.3 X10'3 (0-0.9); MONOCYTES % (AUTO) 7.5 % (2-12); NEUTROPHILS # (AUTO) 1.5 X10'3 (1.8-7.7); NEUTROPHILS % (AUTO) 37.5 % (42-75); PLATELET COUNT 239 X10'3 (140-440); RED BLOOD COUNT 3.41 X10'6 (4.20-5.60); RED CELL DISTRIBUTION WIDTH 17.2 % (11.5-14.5); WHITE BLOOD COUNT 4.1 X10'3 (4.5-11.0)
[2018-03-14 07:42] LABS: ALANINE AMINOTRANSFERASE 51 U/L (12-78); ALBUMIN 1.5 G/DL (3.4-5.0); ALBUMIN/GLOBULIN RATIO 0.4 (1.1-1.5); ALKALINE PHOSPHATASE 148 IU/L (46-116); ANION GAP 5 (8-16); ASPARTATE AMINO TRANSFERASE 73 U/L (10-37); BILIRUBIN,TOTAL 0.5 MG/DL (0.1-1.0); BLOOD UREA NITROGEN 4 MG/DL (7-18); BUN/CREATININE RATIO 6.1 (6.6-38.0); CALCIUM 7.5 MG/DL (8.5-10.1); CHLORIDE 107 MMOL/L (99-107); CREATININE 0.66 MG/DL (0.40-0.90); GLUCOSE 88 MG/DL (70-104); POTASSIUM 3.4 MMOL/L (3.5-5.1); SODIUM 138 MMOL/L (135-145); TOTAL CARBON DIOXIDE 25.6 MMOL/L (24-32); TOTAL PROTEIN 5.3 G/DL (6.4-8.2); eGFR > 90 ML/MIN
[2018-03-14] MEDS: docusate sod 100mg capsule PO SCH (09:07)
[2018-03-14] MEDS: gabapentin 300mg capsule PO SCH ×3 (09:08→21:20)
[2018-03-14] MEDS: pantoprazole 40 MG vial IV SCH (09:08)
[2018-03-14] MEDS: enoxaparin 40mg/0.4ml syringe SUBCUT SCH (09:08)
[2018-03-14] MEDS: HYDROcodone/acetaminophen 10/325mg tab PO PRN ×3 (09:18→21:19)
[2018-03-14 11:00] VITALS: BP 110/61
[2018-03-14] MEDS: ondansetron/PF 4mg/2ml inj IV PRN (15:41)
[2018-03-14 18:00] VITALS: BP 126/78
[2018-03-14] MEDS: Melatonin 3mg tablet PO SCH (21:20)
[2018-03-14] MEDS ORDERED: magnesium 4gm in 100ml NS 100 ML IV PRN (22:25)
[2018-03-14] MEDS ORDERED: potassium Cl 20 mEq SR tablet PO PRN (22:25)
[2018-03-14] MEDS ORDERED: potassium Cl 40MEQ/NS 500ml 500 ML IV PRN ×2 (22:25)
[2018-03-14] MEDS ORDERED: magnesium Cl slow-release 64mg tablet PO PRN (22:25)
[2018-03-14] MEDS: potassium Cl 20 mEq SR tablet PO PRN (22:31)
[2018-03-14] MEDS: proCHLORperazine 10 MG/2 ml inj IV PRN (23:27)
[2018-03-15] VITALS: BP 105/65
[2018-03-15] MEDS: potassium Cl 20 mEq SR tablet PO PRN (02:34)
[2018-03-15] MEDS: dextrose 5%-1/2 normal saline 1,000 ML IV SCH ×3 (02:34→23:14)
[2018-03-15] MEDS: CARBOXYMETHYLCELLULOSE SODIUM 15 ML DROPS EACHEYE SCH ×6 (04:00→23:21)
[2018-03-15] MEDS: proCHLORperazine 10 MG/2 ml inj IV PRN ×2 (05:37→13:27)
[2018-03-15 05:59] LABS: ALANINE AMINOTRANSFERASE 43 U/L (12-78); ALBUMIN 1.5 G/DL (3.4-5.0); ALBUMIN/GLOBULIN RATIO 0.4 (1.1-1.5); ALKALINE PHOSPHATASE 143 IU/L (46-116); ANION GAP 5 (8-16); ASPARTATE AMINO TRANSFERASE 69 U/L (10-37); BILIRUBIN,TOTAL 0.6 MG/DL (0.1-1.0); BLOOD UREA NITROGEN 5 MG/DL (7-18); BUN/CREATININE RATIO 6.5 (6.6-38.0); CALCIUM 7.6 MG/DL (8.5-10.1); CHLORIDE 105 MMOL/L (99-107); CREATININE 0.77 MG/DL (0.40-0.90); GLUCOSE 83 MG/DL (70-104); MAGNESIUM 1.5 MG/DL (1.5-2.4); POTASSIUM 4.2 MMOL/L (3.5-5.1); SODIUM 137 MMOL/L (135-145); TOTAL CARBON DIOXIDE 26.8 MMOL/L (24-32); TOTAL PROTEIN 5.2 G/DL (6.4-8.2); eGFR 79 ML/MIN
[2018-03-15 06:04] LABS: BASOPHILS % (AUTO) 0.6 % (0-1); EOSINOPHILS % (AUTO) 0.8 % (0-6); HEMATOCRIT 32.1 % (35.0-45.0); HEMOGLOBIN 10.7 g/dl (12.0-16.0); LYMPHOCYTES # (AUTO) 2.1 X10'3 (1.1-4.8); LYMPHOCYTES % (AUTO) 47.8 % (21-51); MEAN CORPUSCULAR HEMOGLOBIN 31.8 PG (27.0-31.0); MEAN CORPUSCULAR HGB CONC 33.3 % (33.0-36.5); MEAN CORPUSCULAR VOLUME 95.3 FL (78-98); MEAN PLATELET VOLUME 8.9 FL (7.4-10.4); MONOCYTES # (AUTO) 0.3 X10'3 (0-0.9); MONOCYTES % (AUTO) 5.9 % (2-12); NEUTROPHILS % (AUTO) 44.9 % (42-75); PLATELET COUNT 237 X10'3 (140-440); RED BLOOD COUNT 3.36 X10'6 (4.20-5.60); RED CELL DISTRIBUTION WIDTH 17.4 % (11.5-14.5); WHITE BLOOD COUNT 4.4 X10'3 (4.5-11.0)
[2018-03-15 08:00] VITALS: BP 111/72
[2018-03-15] MEDS: gabapentin 300mg capsule PO SCH ×3 (08:45→21:09)
[2018-03-15] MEDS: docusate sod 100mg capsule PO SCH (08:45)
[2018-03-15] MEDS: pantoprazole 40 MG vial IV SCH (08:47)
[2018-03-15] MEDS: enoxaparin 40mg/0.4ml syringe SUBCUT SCH (08:47)
[2018-03-15] MEDS: HYDROcodone/acetaminophen 10/325mg tab PO PRN ×4 (08:57→23:13)
[2018-03-15 12:00] VITALS: BP 107/67
[2018-03-15] MEDS: Melatonin 3mg tablet PO SCH (21:09)
[2018-03-15 22:08] VITALS: BP 110/60
[2018-03-16] VITALS: BP 98/49
[2018-03-16] MEDS: zolpidem 5mg tablet PO PRN ×2 (00:32→23:53)
[2018-03-16] MEDS: CARBOXYMETHYLCELLULOSE SODIUM 15 ML DROPS EACHEYE SCH ×6 (04:03→23:50)
[2018-03-16 07:02] LABS: MAGNESIUM 1.5 MG/DL (1.5-2.4); POTASSIUM 3.3 MMOL/L (3.5-5.1)
[2018-03-16 07:33] VITALS: BP 114/72
[2018-03-16] MEDS: enoxaparin 40mg/0.4ml syringe SUBCUT SCH (08:04)
[2018-03-16] MEDS: pantoprazole 40 MG vial IV SCH (08:14)
[2018-03-16] MEDS: HYDROcodone/acetaminophen 10/325mg tab PO PRN ×2 (09:02→21:09)
[2018-03-16] MEDS: docusate sod 100mg capsule PO SCH (09:03)
[2018-03-16] MEDS: gabapentin 300mg capsule PO SCH ×3 (09:03→21:00)
[2018-03-16] MEDS: dextrose 5%-1/2 normal saline 1,000 ML IV SCH (09:25)
[2018-03-16 11:00] VITALS: BP 108/71
[2018-03-16] MEDS ORDERED: diphenhydrAMINE 50 mg/ml inj IV PRN (12:20)
[2018-03-16] MEDS ORDERED: diphenhydrAMINE 50 mg/ml inj IV ONE (12:45)
[2018-03-16] MEDS ORDERED: thiamine 100mg/ml 2ml inj. IV ONE (13:00)
[2018-03-16] MEDS ORDERED: thiamine inj. 100 MG in normal saline 100ml IV soln 100 ML IV ONE (13:05)
[2018-03-16 13:48] LABS: BASOPHILS # (AUTO) 0.1 X10'3 (0-0.2); BASOPHILS % (AUTO) 1.3 % (0-1); EOSINOPHILS % (AUTO) 0 % (0-6); HEMATOCRIT 37.7 % (35.0-45.0); HEMOGLOBIN 12.6 g/dl (12.0-16.0); LYMPHOCYTES # (AUTO) 2.5 X10'3 (1.1-4.8); LYMPHOCYTES % (AUTO) 26.1 % (21-51); MEAN CORPUSCULAR HEMOGLOBIN 31.6 PG (27.0-31.0); MEAN CORPUSCULAR HGB CONC 33.5 % (33.0-36.5); MEAN CORPUSCULAR VOLUME 94.3 FL (78-98); MEAN PLATELET VOLUME 8.6 FL (7.4-10.4); MONOCYTES # (AUTO) 0.3 X10'3 (0-0.9); MONOCYTES % (AUTO) 3.5 % (2-12); NEUTROPHILS # (AUTO) 6.5 X10'3 (1.8-7.7); NEUTROPHILS % (AUTO) 69.1 % (42-75); PLATELET COUNT 192 X10'3 (140-440); RED CELL DISTRIBUTION WIDTH 16.8 % (11.5-14.5); WHITE BLOOD COUNT 9.4 X10'3 (4.5-11.0)
[2018-03-16] MEDS ORDERED: aspirin 300mg supp.rect RC ONE (13:50)
[2018-03-16 16:11] LABS: ALANINE AMINOTRANSFERASE 54 U/L (12-78); ALBUMIN 1.5 G/DL (3.4-5.0); ALBUMIN/GLOBULIN RATIO 0.3 (1.1-1.5); ALKALINE PHOSPHATASE 174 IU/L (46-116); ANION GAP 8 (8-16); ASPARTATE AMINO TRANSFERASE 72 U/L (10-37); BILIRUBIN,TOTAL 1.1 MG/DL (0.1-1.0); BLOOD UREA NITROGEN 5 MG/DL (7-18); BUN/CREATININE RATIO 7.9 (6.6-38.0); CALCIUM 7.9 MG/DL (8.5-10.1); CHLORIDE 106 MMOL/L (99-107); CREATININE 0.63 MG/DL (0.40-0.90); GLUCOSE 80 MG/DL (70-104); MAGNESIUM 1.7 MG/DL (1.5-2.4); PHOSPHORUS 3.4 MG/DL (2.3-4.5); POTASSIUM 3.6 MMOL/L (3.5-5.1); SODIUM 140 MMOL/L (135-145); TOTAL CARBON DIOXIDE 26.1 MMOL/L (24-32); TOTAL PROTEIN 5.9 G/DL (6.4-8.2); eGFR > 90 ML/MIN
[2018-03-16 16:16] LABS: ALANINE AMINOTRANSFERASE 49 U/L (12-78); ALBUMIN 1.4 G/DL (3.4-5.0); ALBUMIN/GLOBULIN RATIO 0.4 (1.1-1.5); ALKALINE PHOSPHATASE 162 IU/L (46-116); ANION GAP 7 (8-16); ASPARTATE AMINO TRANSFERASE 65 U/L (10-37); BLOOD UREA NITROGEN 5 MG/DL (7-18); BUN/CREATININE RATIO 8.9 (6.6-38.0); CALCIUM 7.7 MG/DL (8.5-10.1); CHLORIDE 106 MMOL/L (99-107); CREATININE 0.56 MG/DL (0.40-0.90); GLUCOSE 83 MG/DL (70-104); MAGNESIUM 1.6 MG/DL (1.5-2.4); PHOSPHORUS 3.5 MG/DL (2.3-4.5); POTASSIUM 3.5 MMOL/L (3.5-5.1); SODIUM 140 MMOL/L (135-145); TOTAL CARBON DIOXIDE 27.5 MMOL/L (24-32); TOTAL PROTEIN 5.4 G/DL (6.4-8.2); eGFR > 90 ML/MIN
[2018-03-16] MEDS: cyanocobalamin 1,000 mcg/ml inj SQ SCH (16:43)
[2018-03-16] MEDS: thiamine inj. 100 MG, magnesium sulf injection 2 GM, MVI, adult No.4 with vit. K 10 ML ... IV SCH ×4 (16:50)
[2018-03-16 20:30] VITALS: BP 119/77
[2018-03-16] MEDS: Melatonin 3mg tablet PO SCH (21:00)
[2018-03-17] VITALS (16 sets, daily range): BP systolic 86–119; BP diastolic 65–95
[2018-03-17] MEDS: CARBOXYMETHYLCELLULOSE SODIUM 15 ML DROPS EACHEYE SCH ×5 (04:00→21:16)
[2018-03-17 05:33] LABS: BASOPHILS % (AUTO) 0.4 % (0-1); EOSINOPHILS # (AUTO) 0.1 X10'3 (0-0.9); HEMATOCRIT 30.6 % (35.0-45.0); HEMOGLOBIN 10.3 g/dl (12.0-16.0); LYMPHOCYTES # (AUTO) 2.3 X10'3 (1.1-4.8); LYMPHOCYTES % (AUTO) 37.6 % (21-51); MEAN CORPUSCULAR HGB CONC 33.7 % (33.0-36.5); MEAN CORPUSCULAR VOLUME 94.9 FL (78-98); MEAN PLATELET VOLUME 8.2 FL (7.4-10.4); MONOCYTES # (AUTO) 0.4 X10'3 (0-0.9); MONOCYTES % (AUTO) 6.5 % (2-12); NEUTROPHILS # (AUTO) 3.3 X10'3 (1.8-7.7); NEUTROPHILS % (AUTO) 54.5 % (42-75); PLATELET COUNT 213 X10'3 (140-440); RED BLOOD COUNT 3.23 X10'6 (4.20-5.60); RED CELL DISTRIBUTION WIDTH 17.1 % (11.5-14.5)
[2018-03-17 05:44] LABS: ALANINE AMINOTRANSFERASE 47 U/L (12-78); ALBUMIN 1.3 G/DL (3.4-5.0); ALBUMIN/GLOBULIN RATIO 0.3 (1.1-1.5); ALKALINE PHOSPHATASE 162 IU/L (46-116); ANION GAP 7 (8-16); ASPARTATE AMINO TRANSFERASE 51 U/L (10-37); BILIRUBIN,TOTAL 0.7 MG/DL (0.1-1.0); BLOOD UREA NITROGEN 5 MG/DL (7-18); BUN/CREATININE RATIO 7.8 (6.6-38.0); CALCIUM 7.5 MG/DL (8.5-10.1); CHLORIDE 105 MMOL/L (99-107); CREATININE 0.64 MG/DL (0.40-0.90); GLUCOSE 91 MG/DL (70-104); MAGNESIUM 2.1 MG/DL (1.5-2.4); PHOSPHORUS 3.5 MG/DL (2.3-4.5); POTASSIUM 3.1 MMOL/L (3.5-5.1); SODIUM 139 MMOL/L (135-145); TOTAL CARBON DIOXIDE 27.2 MMOL/L (24-32); TOTAL PROTEIN 5.2 G/DL (6.4-8.2); eGFR > 90 ML/MIN
[2018-03-17] MEDS: gabapentin 300mg capsule PO SCH ×3 (08:32→21:20)
[2018-03-17] MEDS: thiamine inj. 100 MG, magnesium sulf injection 2 GM, MVI, adult No.4 with vit. K 10 ML ... IV SCH ×4 (08:32)
[2018-03-17] MEDS: docusate sod 100mg capsule PO SCH (08:32)
[2018-03-17] MEDS: cyanocobalamin 1,000 mcg/ml inj SQ SCH (08:32)
[2018-03-17] MEDS: pantoprazole 40 MG vial IV SCH (08:32)
[2018-03-17] MEDS: multivitamin oral liquid (Certavite) 5ml cup PO SCH (08:33)
[2018-03-17] MEDS: vitamin B comp w/Vit. C tab 1 TAB TABLET PO SCH (08:33)
[2018-03-17] MEDS: potassium Cl 20 mEq SR tablet PO PRN ×2 (08:34→12:36)
[2018-03-17] MEDS: HYDROcodone/acetaminophen 10/325mg tab PO PRN ×3 (08:35→21:19)
[2018-03-17] MEDS ORDERED: LIDOcaine Viscous 15ml cup ONE (16:05)
[2018-03-17] MEDS ORDERED: fentaNYL/PF 50MCG/1 ML 2ML syringe ONE (16:05)
[2018-03-17] MEDS ORDERED: MIDAZolam 5mg/5ml vial ONE (16:05)
[2018-03-17] MEDS ORDERED: levoFLOXACIN-Levaquin 500mg/D5 100 ML IV SCH (16:45)
[2018-03-17] MEDS: levoFLOXACIN-Levaquin 500mg/D5 100 ML IV SCH (21:12)
[2018-03-17] MEDS: Melatonin 3mg tablet PO SCH (21:20)
[2018-03-18] VITALS: BP 104/73
[2018-03-18] MEDS: CARBOXYMETHYLCELLULOSE SODIUM 15 ML DROPS EACHEYE SCH ×6 (00:03→19:47)
[2018-03-18] MEDS ORDERED: calcium chloride 100 MG/1 ML inj IV ONE (02:20)
[2018-03-18] MEDS ORDERED: calcium chloride inj. 1,000 MG in normal saline 100ml IV soln 90 ML IV ONE (02:30)
[2018-03-18 02:50] LABS: BASOPHILS % (AUTO) 0.1 % (0-1); EOSINOPHILS % (AUTO) 0.9 % (0-6); HEMATOCRIT 34.9 % (35.0-45.0); HEMOGLOBIN 11.8 g/dl (12.0-16.0); LYMPHOCYTES % (AUTO) 41.4 % (21-51); MEAN CORPUSCULAR HGB CONC 33.8 % (33.0-36.5); MEAN CORPUSCULAR VOLUME 94.8 FL (78-98); MEAN PLATELET VOLUME 8.3 FL (7.4-10.4); MONOCYTES # (AUTO) 0.3 X10'3 (0-0.9); MONOCYTES % (AUTO) 5.4 % (2-12); NEUTROPHILS # (AUTO) 2.5 X10'3 (1.8-7.7); NEUTROPHILS % (AUTO) 52.2 % (42-75); PLATELET COUNT 243 X10'3 (140-440); RED BLOOD COUNT 3.68 X10'6 (4.20-5.60); RED CELL DISTRIBUTION WIDTH 17.5 % (11.5-14.5); WHITE BLOOD COUNT 4.8 X10'3 (4.5-11.0)
[2018-03-18 02:58] LABS: ALANINE AMINOTRANSFERASE 48 U/L (12-78); ALBUMIN 1.6 G/DL (3.4-5.0); ALBUMIN/GLOBULIN RATIO 0.3 (1.1-1.5); ALKALINE PHOSPHATASE 187 IU/L (46-116); ANION GAP 4 (8-16); ASPARTATE AMINO TRANSFERASE 54 U/L (10-37); BILIRUBIN,TOTAL 0.7 MG/DL (0.1-1.0); BLOOD UREA NITROGEN 4 MG/DL (7-18); BUN/CREATININE RATIO 5.6 (6.6-38.0); CALCIUM 7.7 MG/DL (8.5-10.1); CHLORIDE 106 MMOL/L (99-107); CREATININE 0.71 MG/DL (0.40-0.90); GLUCOSE 81 MG/DL (70-104); PHOSPHORUS 3.7 MG/DL (2.3-4.5); POTASSIUM 3.6 MMOL/L (3.5-5.1); SODIUM 139 MMOL/L (135-145); TOTAL CARBON DIOXIDE 28.9 MMOL/L (24-32); TOTAL PROTEIN 6.2 G/DL (6.4-8.2); eGFR 87 ML/MIN
[2018-03-18] MEDS: HYDROcodone/acetaminophen 10/325mg tab PO PRN ×3 (03:10→13:32)
[2018-03-18] MEDS ORDERED: magnesium 4gm in 100ml NS 100 ML IV PRN (05:15)
[2018-03-18] MEDS ORDERED: magnesium Cl slow-release 64mg tablet PO PRN (05:15)
[2018-03-18] MEDS ORDERED: magnesium 1gm/100ml D5W IVPB 100 ML IV PRN (05:15)
[2018-03-18] MEDS ORDERED: potassium Cl 40MEQ/NS 500ml 500 ML IV PRN ×2 (05:15)
[2018-03-18] MEDS ORDERED: potassium Cl 20 mEq SR tablet PO PRN ×2 (05:15)
[2018-03-18 07:30] VITALS: BP 143/65
[2018-03-18] MEDS: pantoprazole 40 MG vial IV SCH (09:23)
[2018-03-18] MEDS: thiamine inj. 100 MG, magnesium sulf injection 2 GM, MVI, adult No.4 with vit. K 10 ML ... IV SCH ×4 (09:24)
[2018-03-18] MEDS: docusate sod 100mg capsule PO SCH (09:25)
[2018-03-18] MEDS: gabapentin 300mg capsule PO SCH ×3 (09:25→22:26)
[2018-03-18] MEDS: vitamin B comp w/Vit. C tab 1 TAB TABLET PO SCH (09:25)
[2018-03-18] MEDS: cyanocobalamin 1,000 mcg/ml inj SQ SCH (09:26)
[2018-03-18 09:29] LABS: MAGNESIUM 1.6 MG/DL (1.5-2.4)
[2018-03-18 09:30] LABS: POTASSIUM 4.7 MMOL/L (3.5-5.1)
[2018-03-18] MEDS: multivitamin oral liquid (Certavite) 5ml cup PO SCH (10:51)
[2018-03-18 12:35] VITALS: BP 143/65
[2018-03-18] MEDS: dextrose 5%-1/2 normal saline 1,000 ML IV SCH ×2 (15:09→17:28)
[2018-03-18] MEDS: ondansetron/PF 4mg/2ml inj IV PRN (19:47)
[2018-03-18 20:00] VITALS: BP 120/71
[2018-03-18] MEDS: levoFLOXACIN-Levaquin 500mg/D5 100 ML IV SCH (22:21)
[2018-03-18] MEDS: Melatonin 3mg tablet PO SCH (22:26)
[2018-03-19] VITALS: BP 102/66
[2018-03-19] MEDS: CARBOXYMETHYLCELLULOSE SODIUM 15 ML DROPS EACHEYE SCH ×6 (00:31→21:08)
[2018-03-19] MEDS: zolpidem 5mg tablet PO PRN (00:32)
[2018-03-19 06:59] LABS: BASOPHILS % (AUTO) 0.7 % (0-1); EOSINOPHILS % (AUTO) 0.2 % (0-6); HEMATOCRIT 30.4 % (35.0-45.0); HEMOGLOBIN 10.1 g/dl (12.0-16.0); LYMPHOCYTES # (AUTO) 1.9 X10'3 (1.1-4.8); MEAN CORPUSCULAR HEMOGLOBIN 31.6 PG (27.0-31.0); MEAN CORPUSCULAR HGB CONC 33.2 % (33.0-36.5); MEAN CORPUSCULAR VOLUME 95.2 FL (78-98); MEAN PLATELET VOLUME 8.1 FL (7.4-10.4); MONOCYTES # (AUTO) 0.4 X10'3 (0-0.9); MONOCYTES % (AUTO) 6.7 % (2-12); NEUTROPHILS # (AUTO) 3.4 X10'3 (1.8-7.7); NEUTROPHILS % (AUTO) 59.4 % (42-75); PLATELET COUNT 244 X10'3 (140-440); RED CELL DISTRIBUTION WIDTH 16.9 % (11.5-14.5); WHITE BLOOD COUNT 5.7 X10'3 (4.5-11.0)
[2018-03-19 07:11] LABS: ALANINE AMINOTRANSFERASE 41 U/L (12-78); ALBUMIN 1.3 G/DL (3.4-5.0); ALBUMIN/GLOBULIN RATIO 0.3 (1.1-1.5); ALKALINE PHOSPHATASE 160 IU/L (46-116); ANION GAP 7 (8-16); ASPARTATE AMINO TRANSFERASE 55 U/L (10-37); BILIRUBIN,TOTAL 0.7 MG/DL (0.1-1.0); BLOOD UREA NITROGEN 4 MG/DL (7-18); BUN/CREATININE RATIO 6.9 (6.6-38.0); CALCIUM 7.6 MG/DL (8.5-10.1); CHLORIDE 106 MMOL/L (99-107); CREATININE 0.58 MG/DL (0.40-0.90); GLUCOSE 87 MG/DL (70-104); MAGNESIUM 1.8 MG/DL (1.5-2.4); PHOSPHORUS 4.4 MG/DL (2.3-4.5); POTASSIUM 3.9 MMOL/L (3.5-5.1); SODIUM 141 MMOL/L (135-145); TOTAL CARBON DIOXIDE 28.4 MMOL/L (24-32); TOTAL PROTEIN 5.2 G/DL (6.4-8.2); eGFR > 90 ML/MIN
[2018-03-19 08:00] VITALS: BP 101/43
[2018-03-19] MEDS: lactobacillus rhamnosus 10,000 MMU CELLS/CAPSULE PO SCH ×2 (09:26→21:09)
[2018-03-19] MEDS: gabapentin 300mg capsule PO SCH ×3 (09:26→22:00)
[2018-03-19] MEDS: thiamine inj. 100 MG, magnesium sulf injection 2 GM, MVI, adult No.4 with vit. K 10 ML ... IV SCH ×4 (09:26)
[2018-03-19] MEDS: multivitamin oral liquid (Certavite) 5ml cup PO SCH (09:27)
[2018-03-19] MEDS: pantoprazole 40 MG vial IV SCH (09:27)
[2018-03-19] MEDS: cyanocobalamin 1,000 mcg/ml inj SQ SCH (09:27)
[2018-03-19] MEDS: docusate sod 100mg capsule PO SCH (09:27)
[2018-03-19] MEDS: vitamin B comp w/Vit. C tab 1 TAB TABLET PO SCH (09:27)
[2018-03-19 11:41] VITALS: BP 107/68
[2018-03-19] MEDS: HYDROcodone/acetaminophen 5mg/325mg tablet PO PRN (12:47)
[2018-03-19 20:00] VITALS: BP 119/82
[2018-03-19] MEDS: levoFLOXACIN-Levaquin 500mg/D5 100 ML IV SCH (21:09)
[2018-03-19] MEDS: HYDROcodone/acetaminophen 10/325mg tab PO PRN (21:11)
[2018-03-19] MEDS: Melatonin 3mg tablet PO SCH (22:00)
[2018-03-20] VITALS: BP 111/69
[2018-03-20] MEDS: CARBOXYMETHYLCELLULOSE SODIUM 15 ML DROPS EACHEYE SCH ×6 (00:40→20:05)
[2018-03-20] MEDS: temazepam 15mg capsule PO PRN (00:40)
[2018-03-20] MEDS: ondansetron/PF 4mg/2ml inj IV PRN (04:45)
[2018-03-20 05:51] LABS: BASOPHILS % (AUTO) 0.3 % (0-1); EOSINOPHILS # (AUTO) 0.1 X10'3 (0-0.9); EOSINOPHILS % (AUTO) 1.3 % (0-6); HEMOGLOBIN 10.1 g/dl (12.0-16.0); LYMPHOCYTES # (AUTO) 2.9 X10'3 (1.1-4.8); LYMPHOCYTES % (AUTO) 57.5 % (21-51); MEAN CORPUSCULAR HEMOGLOBIN 31.9 PG (27.0-31.0); MEAN CORPUSCULAR HGB CONC 33.6 % (33.0-36.5); MEAN CORPUSCULAR VOLUME 94.8 FL (78-98); MEAN PLATELET VOLUME 8.1 FL (7.4-10.4); MONOCYTES # (AUTO) 0.4 X10'3 (0-0.9); MONOCYTES % (AUTO) 7.6 % (2-12); NEUTROPHILS # (AUTO) 1.7 X10'3 (1.8-7.7); NEUTROPHILS % (AUTO) 33.3 % (42-75); PLATELET COUNT 248 X10'3 (140-440); RED BLOOD COUNT 3.16 X10'6 (4.20-5.60); RED CELL DISTRIBUTION WIDTH 16.7 % (11.5-14.5)
[2018-03-20 06:14] LABS: ALANINE AMINOTRANSFERASE 36 U/L (12-78); ALBUMIN 1.3 G/DL (3.4-5.0); ALBUMIN/GLOBULIN RATIO 0.3 (1.1-1.5); ALKALINE PHOSPHATASE 153 IU/L (46-116); ANION GAP 5 (8-16); ASPARTATE AMINO TRANSFERASE 44 U/L (10-37); BILIRUBIN,TOTAL 0.5 MG/DL (0.1-1.0); BLOOD UREA NITROGEN 4 MG/DL (7-18); BUN/CREATININE RATIO 6.7 (6.6-38.0); CALCIUM 7.7 MG/DL (8.5-10.1); CHLORIDE 107 MMOL/L (99-107); GLUCOSE 74 MG/DL (70-104); MAGNESIUM 1.9 MG/DL (1.5-2.4); PHOSPHORUS 4.1 MG/DL (2.3-4.5); POTASSIUM 3.9 MMOL/L (3.5-5.1); SODIUM 142 MMOL/L (135-145); TOTAL CARBON DIOXIDE 30.3 MMOL/L (24-32); TOTAL PROTEIN 5.2 G/DL (6.4-8.2); eGFR > 90 ML/MIN
[2018-03-20 07:34] LABS: ANISOCYTOSIS 1+; PLATELET ESTIMATE NORMAL; TARGET CELLS 2+
[2018-03-20 07:40] VITALS: BP 88/53
[2018-03-20] MEDS: cyanocobalamin 1,000 mcg/ml inj SQ SCH (08:01)
[2018-03-20] MEDS: vitamin B comp w/Vit. C tab 1 TAB TABLET PO SCH (08:02)
[2018-03-20] MEDS: pantoprazole 40 MG vial IV SCH (08:02)
[2018-03-20] MEDS: gabapentin 300mg capsule PO SCH ×3 (08:02→21:16)
[2018-03-20] MEDS: thiamine inj. 100 MG, magnesium sulf injection 2 GM, MVI, adult No.4 with vit. K 10 ML ... IV SCH ×4 (08:02)
[2018-03-20] MEDS: docusate sod 100mg capsule PO SCH (08:02)
[2018-03-20] MEDS: multivitamin oral liquid (Certavite) 5ml cup PO SCH (08:02)
[2018-03-20] MEDS: lactobacillus rhamnosus 10,000 MMU CELLS/CAPSULE PO SCH ×2 (08:02→20:05)
[2018-03-20 11:05] VITALS: BP 93/87
[2018-03-20] MEDS: HYDROcodone/acetaminophen 10/325mg tab PO PRN ×2 (12:29→20:12)
[2018-03-20] MEDS: dextrose 5%-1/2 normal saline 1,000 ML IV SCH (15:09)
[2018-03-20 19:00] VITALS: BP 113/72
[2018-03-20] MEDS: Melatonin 3mg tablet PO SCH (21:17)
[2018-03-20] MEDS: levoFLOXACIN-Levaquin 500mg/D5 100 ML IV SCH (21:18)
[2018-03-21] VITALS: BP 90/60
[2018-03-21] MEDS: CARBOXYMETHYLCELLULOSE SODIUM 15 ML DROPS EACHEYE SCH ×7 (00:08→23:28)
[2018-03-21] MEDS: zolpidem 5mg tablet PO PRN ×2 (00:10→23:27)
[2018-03-21] MEDS: dextrose 5%-1/2 normal saline 1,000 ML IV SCH (03:53)
[2018-03-21] MEDS: ondansetron/PF 4mg/2ml inj IV PRN (05:19)
[2018-03-21 05:21] LABS: BASOPHILS # (AUTO) 0.1 X10'3 (0-0.2); BASOPHILS % (AUTO) 0.9 % (0-1); EOSINOPHILS % (AUTO) 0.1 % (0-6); HEMATOCRIT 29.7 % (35.0-45.0); HEMOGLOBIN 9.9 g/dl (12.0-16.0); LYMPHOCYTES # (AUTO) 2.4 X10'3 (1.1-4.8); LYMPHOCYTES % (AUTO) 41.1 % (21-51); MEAN CORPUSCULAR HEMOGLOBIN 31.5 PG (27.0-31.0); MEAN CORPUSCULAR HGB CONC 33.4 % (33.0-36.5); MEAN CORPUSCULAR VOLUME 94.4 FL (78-98); MEAN PLATELET VOLUME 7.9 FL (7.4-10.4); MONOCYTES # (AUTO) 0.3 X10'3 (0-0.9); MONOCYTES % (AUTO) 5.5 % (2-12); NEUTROPHILS # (AUTO) 3.1 X10'3 (1.8-7.7); NEUTROPHILS % (AUTO) 52.4 % (42-75); PLATELET COUNT 257 X10'3 (140-440); RED BLOOD COUNT 3.15 X10'6 (4.20-5.60); WHITE BLOOD COUNT 5.9 X10'3 (4.5-11.0)
[2018-03-21 05:40] LABS: ALANINE AMINOTRANSFERASE 39 U/L (12-78); ALBUMIN 1.4 G/DL (3.4-5.0); ALBUMIN/GLOBULIN RATIO 0.3 (1.1-1.5); ALKALINE PHOSPHATASE 156 IU/L (46-116); ANION GAP 8 (8-16); ASPARTATE AMINO TRANSFERASE 63 U/L (10-37); BILIRUBIN,TOTAL 0.5 MG/DL (0.1-1.0); BLOOD UREA NITROGEN 5 MG/DL (7-18); BUN/CREATININE RATIO 6.3 (6.6-38.0); CALCIUM 7.9 MG/DL (8.5-10.1); CHLORIDE 105 MMOL/L (99-107); GLUCOSE 85 MG/DL (70-104); MAGNESIUM 1.9 MG/DL (1.5-2.4); PHOSPHORUS 4.1 MG/DL (2.3-4.5); POTASSIUM 3.8 MMOL/L (3.5-5.1); SODIUM 140 MMOL/L (135-145); TOTAL CARBON DIOXIDE 26.7 MMOL/L (24-32); TOTAL PROTEIN 5.5 G/DL (6.4-8.2); eGFR 76 ML/MIN
[2018-03-21 07:00] VITALS: BP 94/50
[2018-03-21] MEDS: vitamin B comp w/Vit. C tab 1 TAB TABLET PO SCH (08:57)
[2018-03-21] MEDS: pantoprazole 40 MG vial IV SCH (08:57)
[2018-03-21] MEDS: thiamine inj. 100 MG, magnesium sulf injection 2 GM, MVI, adult No.4 with vit. K 10 ML ... IV SCH ×4 (08:57)
[2018-03-21] MEDS: gabapentin 300mg capsule PO SCH ×3 (09:02→20:36)
[2018-03-21] MEDS: multivitamin oral liquid (Certavite) 5ml cup PO SCH (09:02)
[2018-03-21] MEDS: lactobacillus rhamnosus 10,000 MMU CELLS/CAPSULE PO SCH ×2 (09:03→19:52)
[2018-03-21] MEDS: docusate sod 100mg capsule PO SCH (09:03)
[2018-03-21] MEDS: cyanocobalamin 1,000 mcg/ml inj SQ SCH (09:03)
[2018-03-21 11:00] VITALS: BP 114/67
[2018-03-21 19:00] VITALS: BP 110/70
[2018-03-21] MEDS: levoFLOXACIN-Levaquin 500mg/D5 100 ML IV SCH (20:36)
[2018-03-21] MEDS: Melatonin 3mg tablet PO SCH (20:36)
[2018-03-22] MEDS: CARBOXYMETHYLCELLULOSE SODIUM 15 ML DROPS EACHEYE SCH ×5 (04:13→20:46)
[2018-03-22 06:34] LABS: MAGNESIUM 2.1 MG/DL (1.5-2.4); POTASSIUM 3.4 MMOL/L (3.5-5.1)
[2018-03-22 07:00] VITALS: BP 91/50
[2018-03-22] MEDS: thiamine inj. 100 MG, magnesium sulf injection 2 GM, MVI, adult No.4 with vit. K 10 ML ... IV SCH ×4 (08:59)
[2018-03-22] MEDS: gabapentin 300mg capsule PO SCH ×3 (09:00→21:04)
[2018-03-22] MEDS: pantoprazole 40 MG vial IV SCH (09:00)
[2018-03-22] MEDS: lactobacillus rhamnosus 10,000 MMU CELLS/CAPSULE PO SCH ×2 (09:00→20:46)
[2018-03-22] MEDS: vitamin B comp w/Vit. C tab 1 TAB TABLET PO SCH (09:00)
[2018-03-22] MEDS: cyanocobalamin 1,000 mcg/ml inj SQ SCH (09:00)
[2018-03-22] MEDS: citalopram 20mg tablet PO SCH (09:00)
[2018-03-22] MEDS: docusate sod 100mg capsule PO SCH (09:00)
[2018-03-22] MEDS: multivitamin oral liquid (Certavite) 5ml cup PO SCH (09:01)
[2018-03-22] MEDS: HYDROcodone/acetaminophen 5mg/325mg tablet PO PRN ×2 (09:04→20:50)
[2018-03-22 11:00] VITALS: BP 96/58
[2018-03-22] MEDS: ondansetron/PF 4mg/2ml inj IV PRN (11:01)
[2018-03-22] MEDS: dextrose 5%-1/2 normal saline 1,000 ML IV SCH (15:09)
[2018-03-22 19:00] VITALS: BP 108/79
[2018-03-22] MEDS: levoFLOXACIN 500mg tablet PO SCH (20:46)
[2018-03-22] MEDS: Melatonin 3mg tablet PO SCH (21:04)
[2018-03-23] VITALS: BP 94/51
[2018-03-23] MEDS: CARBOXYMETHYLCELLULOSE SODIUM 15 ML DROPS EACHEYE SCH ×7 (04:00→23:37)
[2018-03-23 06:46] LABS: MAGNESIUM 1.9 MG/DL (1.5-2.4); POTASSIUM 3.9 MMOL/L (3.5-5.1)
[2018-03-23] MEDS: multivitamin oral liquid (Certavite) 5ml cup PO SCH (07:44)
[2018-03-23] MEDS: HYDROcodone/acetaminophen 5mg/325mg tablet PO PRN (07:45)
[2018-03-23] MEDS: lactobacillus rhamnosus 10,000 MMU CELLS/CAPSULE PO SCH ×2 (07:45→20:26)
[2018-03-23] MEDS: vitamin B comp w/Vit. C tab 1 TAB TABLET PO SCH (07:46)
[2018-03-23] MEDS: docusate sod 100mg capsule PO SCH (07:46)
[2018-03-23] MEDS: gabapentin 300mg capsule PO SCH ×3 (07:46→20:27)
[2018-03-23] MEDS: citalopram 20mg tablet PO SCH (07:46)
[2018-03-23 08:00] VITALS: BP 96/41
[2018-03-23] MEDS: cyanocobalamin 1,000 mcg/ml inj SQ SCH (10:00)
[2018-03-23] MEDS: ondansetron/PF 4mg/2ml inj IV PRN (11:07)
[2018-03-23] MEDS: thiamine inj. 100 MG, magnesium sulf injection 2 GM, MVI, adult No.4 with vit. K 10 ML ... IV SCH ×4 (11:14)
[2018-03-23 11:25] VITALS: BP 94/56
[2018-03-23] MEDS: pantoprazole 40mg Tablet.DR PO SCH (11:39)
[2018-03-23 19:10] VITALS: BP 147/78
[2018-03-23] MEDS: Melatonin 3mg tablet PO SCH (20:27)
[2018-03-23] MEDS: levoFLOXACIN 500mg tablet PO SCH (20:27)
[2018-03-23] MEDS: lactose-reduced food (Ensure High Protein) 237ml bottle PO SCH (20:28)
[2018-03-23] MEDS: zolpidem 5mg tablet PO PRN (22:21)
[2018-03-24] MEDS: CARBOXYMETHYLCELLULOSE SODIUM 15 ML DROPS EACHEYE SCH ×5 (04:00→20:49)
[2018-03-24 05:33] LABS: BASOPHILS % (AUTO) 0.5 % (0-1); EOSINOPHILS % (AUTO) 0.8 % (0-6); HEMATOCRIT 32.2 % (35.0-45.0); HEMOGLOBIN 10.6 g/dl (12.0-16.0); LYMPHOCYTES % (AUTO) 41.6 % (21-51); MEAN CORPUSCULAR HEMOGLOBIN 31.3 PG (27.0-31.0); MEAN CORPUSCULAR HGB CONC 32.8 % (33.0-36.5); MEAN CORPUSCULAR VOLUME 95.6 FL (78-98); MEAN PLATELET VOLUME 8.7 FL (7.4-10.4); MONOCYTES # (AUTO) 0.4 X10'3 (0-0.9); MONOCYTES % (AUTO) 7.2 % (2-12); NEUTROPHILS # (AUTO) 2.5 X10'3 (1.8-7.7); NEUTROPHILS % (AUTO) 49.9 % (42-75); PLATELET COUNT 297 X10'3 (140-440); RED BLOOD COUNT 3.37 X10'6 (4.20-5.60); RED CELL DISTRIBUTION WIDTH 16.8 % (11.5-14.5); WHITE BLOOD COUNT 4.9 X10'3 (4.5-11.0)
[2018-03-24 05:57] LABS: ALANINE AMINOTRANSFERASE 42 U/L (12-78); ALBUMIN 1.5 G/DL (3.4-5.0); ALBUMIN/GLOBULIN RATIO 0.4 (1.1-1.5); ALKALINE PHOSPHATASE 153 IU/L (46-116); ANION GAP 4 (8-16); ASPARTATE AMINO TRANSFERASE 62 U/L (10-37); BILIRUBIN,TOTAL 0.4 MG/DL (0.1-1.0); BLOOD UREA NITROGEN 6 MG/DL (7-18); BUN/CREATININE RATIO 8.3 (6.6-38.0); CALCIUM 7.6 MG/DL (8.5-10.1); CHLORIDE 106 MMOL/L (99-107); CREATININE 0.72 MG/DL (0.40-0.90); GLUCOSE 71 MG/DL (70-104); SODIUM 139 MMOL/L (135-145); TOTAL CARBON DIOXIDE 28.7 MMOL/L (24-32); TOTAL PROTEIN 5.6 G/DL (6.4-8.2); eGFR 85 ML/MIN
[2018-03-24 07:15] VITALS: BP 108/63
[2018-03-24] MEDS: vitamin B comp w/Vit. C tab 1 TAB TABLET PO SCH (07:52)
[2018-03-24] MEDS: pantoprazole 40mg Tablet.DR PO SCH (07:52)
[2018-03-24] MEDS: citalopram 20mg tablet PO SCH (07:52)
[2018-03-24] MEDS: multivitamin oral liquid (Certavite) 5ml cup PO SCH (07:52)
[2018-03-24] MEDS: gabapentin 300mg capsule PO SCH ×3 (07:52→20:50)
[2018-03-24] MEDS: docusate sod 100mg capsule PO SCH ×2 (07:53→20:49)
[2018-03-24] MEDS: lactobacillus rhamnosus 10,000 MMU CELLS/CAPSULE PO SCH ×2 (07:53→20:49)
[2018-03-24] MEDS: cyanocobalamin 1,000 mcg/ml inj SQ SCH (08:13)
[2018-03-24] MEDS: lactose-reduced food (Ensure High Protein) 237ml bottle PO SCH ×3 (08:27→18:00)
[2018-03-24] MEDS: thiamine inj. 100 MG, magnesium sulf injection 2 GM, MVI, adult No.4 with vit. K 10 ML ... IV SCH ×4 (08:27)
[2018-03-24] MEDS: dextrose 5%-1/2 normal saline 1,000 ML IV SCH (08:27)
[2018-03-24 10:46] VITALS: BP 100/58
[2018-03-24 13:37] VITALS: BP 95/63
[2018-03-24 19:00] VITALS: BP 100/62
[2018-03-24] MEDS: Melatonin 3mg tablet PO SCH (20:50)
[2018-03-24] MEDS: levoFLOXACIN 500mg tablet PO SCH (20:50)
[2018-03-24] MEDS: zolpidem 5mg tablet PO PRN (22:18)
[2018-03-25] VITALS: BP 94/55
[2018-03-25] MEDS: HYDROcodone/acetaminophen 10/325mg tab PO PRN ×2 (03:52→13:01)
[2018-03-25] MEDS: CARBOXYMETHYLCELLULOSE SODIUM 15 ML DROPS EACHEYE SCH ×6 (03:53→19:35)
[2018-03-25 07:30] VITALS: BP 102/53
[2018-03-25] MEDS: lactose-reduced food (Ensure High Protein) 237ml bottle PO SCH ×3 (08:00→17:33)
[2018-03-25] MEDS: multivitamin oral liquid (Certavite) 5ml cup PO SCH (08:07)
[2018-03-25] MEDS: pantoprazole 40mg Tablet.DR PO SCH (08:07)
[2018-03-25] MEDS: docusate sod 100mg capsule PO SCH ×2 (08:07→19:35)
[2018-03-25] MEDS: citalopram 20mg tablet PO SCH (08:07)
[2018-03-25] MEDS: lactobacillus rhamnosus 10,000 MMU CELLS/CAPSULE PO SCH ×2 (08:07→19:35)
[2018-03-25] MEDS: thiamine inj. 100 MG, magnesium sulf injection 2 GM, MVI, adult No.4 with vit. K 10 ML ... IV SCH ×4 (08:07)
[2018-03-25] MEDS: vitamin B comp w/Vit. C tab 1 TAB TABLET PO SCH (08:08)
[2018-03-25] MEDS: cyanocobalamin 1,000 mcg/ml inj SQ SCH (08:08)
[2018-03-25] MEDS: gabapentin 300mg capsule PO SCH ×3 (08:08→21:01)
[2018-03-25 11:25] VITALS: BP 95/64
[2018-03-25] MEDS ORDERED: lactose-reduced food (Ensure High Protein) 237ml bottle PO SCH (18:29)
[2018-03-25 20:00] VITALS: BP 100/59
[2018-03-25] MEDS: Melatonin 3mg tablet PO SCH (21:01)
[2018-03-25] MEDS: temazepam 15mg capsule PO PRN (21:01)
[2018-03-25] MEDS: levoFLOXACIN 500mg tablet PO SCH (21:01)
[2018-03-26] VITALS: BP 93/66
[2018-03-26] MEDS: CARBOXYMETHYLCELLULOSE SODIUM 15 ML DROPS EACHEYE SCH ×4 (04:00→13:59)
[2018-03-26 07:00] VITALS: BP 98/61
[2018-03-26 07:30] VITALS: BP 103/67
[2018-03-26] MEDS: multivitamin oral liquid (Certavite) 5ml cup PO SCH (07:50)
[2018-03-26] MEDS: vitamin B comp w/Vit. C tab 1 TAB TABLET PO SCH (07:50)
[2018-03-26] MEDS: gabapentin 300mg capsule PO SCH ×2 (07:50→13:59)
[2018-03-26] MEDS: lactobacillus rhamnosus 10,000 MMU CELLS/CAPSULE PO SCH (07:50)
[2018-03-26] MEDS: docusate sod 100mg capsule PO SCH (07:50)
[2018-03-26] MEDS: pantoprazole 40mg Tablet.DR PO SCH (07:50)
[2018-03-26] MEDS: citalopram 20mg tablet PO SCH (07:50)
[2018-03-26] MEDS: cyanocobalamin 1,000 mcg/ml inj SQ SCH (07:51)
[2018-03-26] MEDS: thiamine inj. 100 MG, magnesium sulf injection 2 GM, MVI, adult No.4 with vit. K 10 ML ... IV SCH ×4 (07:51)
[2018-03-26] MEDS: lactose-reduced food (Ensure High Protein) 237ml bottle PO SCH ×2 (08:00→13:00)
[2018-03-26 11:20] VITALS: BP 101/63
== END 2018-03-26 16:48 | DRG 252 ==
LOC: ER 15:40 → ED HOLD 19:09 → SUR 3N 21:00
PROVIDERS: ADMIT Family Medicine; ATTEND Internal Medicine
PROC: BD15YZZ Fluoroscopy of Upper GI using Other Contrast (ICD-10-PCS; 2018-03-12)
PROC: 0DH63UZ Insertion of Feeding Device into Stomach, Percutaneous Approach (ICD-10-PCS; 2018-03-14)
PROC: B33 Imaging, Upper Arteries, Magnetic Resonance Imaging (MRI) (ICD-10-PCS; 2018-03-16)
PROC: B33 Imaging, Upper Arteries, Magnetic Resonance Imaging (MRI) (ICD-10-PCS; 2018-03-16)
PROC: 0D7A8ZZ Dilation of Jejunum, Via Natural or Artificial Opening Endoscopic (ICD-10-PCS; principal; 2018-03-17)
DX: K95.89 Other complications of other bariatric procedure (principal); E43 Unspecified severe protein-calorie malnutrition; J18.1 Lobar pneumonia, unspecified organism; K76.0 Fatty (change of) liver, not elsewhere classified; E86.0 Dehydration; G62.9 Polyneuropathy, unspecified; E86.1 Hypovolemia; F32.9 Major depressive disorder, single episode, unspecified; F41.9 Anxiety disorder, unspecified; M54.9 Dorsalgia, unspecified; F17.210 Nicotine dependence, cigarettes, uncomplicated; G89.29 Other chronic pain; K21.0 Gastro-esophageal reflux disease with esophagitis; D64.9 Anemia, unspecified; Y84.8 Other medical procedures as the cause of abnormal reaction of the patient, or of later complication, without mention of misadventure at the time of the procedure; E87.6 Hypokalemia; R62.7 Adult failure to thrive; Z82.49 Family history of ischemic heart disease and other diseases of the circulatory system; Z98.84 Bariatric surgery status; Z68.21 Body mass index [BMI] 21.0-21.9, adult; Z91.018 Allergy to other foods; Z90.49 Acquired absence of other specified parts of digestive tract; Z82.3 Family history of stroke; Z80.51 Family history of malignant neoplasm of kidney; Z82.41 Family history of sudden cardiac death; Z79.899 Other long term (current) drug therapy; Y92.89 Other specified places as the place of occurrence of the external cause
CPT/HCPCS: 36415; 36569; 43245; 70450; 70544; 70547; 70551; 71045; 72141; 74018; 74241; 76937; 80053; 82330; 82948; 83690; 83735; 83880; 84100; 84132; 84134; 85025; 87070; 93308; 93880; 96360; 97110; 97116; 97161; 97530; 99152; 99285; A4620; C1726; C1769; C9113; G0378; J0780; J1200; J1650; J1956; J2250; J2270; J2405; J2765; J3010; J3411; J3420; J3475; J3480; J7030; J7060; Q0163

== ENCOUNTER 2018-04-23 10:54 | Outpatient (CLI) | payer MEDICAID ==
[2018-04-23] MEDS ORDERED: iohexol 300mg/ml 100ml inj. ONE (11:29)
== END 2018-04-23 23:59 | disposition home or self-care (01) ==
LOC: 64 CT 10:54
PROVIDERS: ATTEND Internal Medicine
DX: K76.0 Fatty (change of) liver, not elsewhere classified (principal); M51.37 Other intervertebral disc degeneration, lumbosacral region; K59.00 Constipation, unspecified
CPT/HCPCS: 74177; Q9967

== ENCOUNTER 2019-06-24 09:34 | Emergency (ER) | payer MEDICAID ==
[~2019-06-24] VITALS: Ht 162.6 cm; Wt 63.0 kg
[~2019-06-24 09:34] MED LIST changes: +GABA600T13 PO; -GABA600T2 PO; -MELA3TAB PO; +MELA3TAB64 PO
[2019-06-24 10:18] LABS: BASOPHILS % (AUTO) 0.5 % (0-1); EOSINOPHILS % (AUTO) 1.1 % (0-6); HEMATOCRIT 30.2 % (35.0-45.0); HEMOGLOBIN 9.8 g/dl (12.0-16.0); LYMPHOCYTES # (AUTO) 1.8 X10'3 (1.1-4.8); LYMPHOCYTES % (AUTO) 41.4 % (21-51); MEAN CORPUSCULAR HGB CONC 32.6 g/dL (33.0-36.5); MEAN CORPUSCULAR VOLUME 82.7 FL (78-98); MEAN PLATELET VOLUME 8.2 FL (7.4-10.4); MONOCYTES # (AUTO) 0.3 X10'3 (0-0.9); MONOCYTES % (AUTO) 7.4 % (2-12); NEUTROPHILS # (AUTO) 2.2 X10'3 (1.8-7.7); NEUTROPHILS % (AUTO) 49.6 % (42-75); PLATELET COUNT 261 X10'3 (140-440); RED BLOOD COUNT 3.65 X10'6 (4.20-5.60); RED CELL DISTRIBUTION WIDTH 14.9 % (11.5-14.5); WHITE BLOOD COUNT 4.4 X10'3 (4.5-11.0)
[2019-06-24 10:29] LABS: PARTIAL THROMBOPLASTIN TIME 24 SECONDS (22-32)
[2019-06-24 10:30] LABS: ALANINE AMINOTRANSFERASE 37 U/L (12-78); ALBUMIN 3.2 G/DL (3.4-5.0); ALBUMIN/GLOBULIN RATIO 0.9 (1.1-1.5); ALKALINE PHOSPHATASE 160 IU/L (46-116); ANION GAP 6 (8-16); ASPARTATE AMINO TRANSFERASE 44 U/L (10-37); BILIRUBIN,TOTAL 0.2 MG/DL (0.1-1.0); BLOOD UREA NITROGEN 22 MG/DL (7-18); BUN/CREATININE RATIO 28.2 (6.6-38.0); CALCIUM 8.6 MG/DL (8.5-10.1); CHLORIDE 108 MMOL/L (99-107); CREATININE 0.78 MG/DL (0.40-0.90); GLUCOSE 86 MG/DL (70-104); SODIUM 145 MMOL/L (135-145); TOTAL CARBON DIOXIDE 31.5 MMOL/L (24-32); TOTAL PROTEIN 6.7 G/DL (6.4-8.2); eGFR 78 ML/MIN
--- NOTE | 2019-06-24 11:25 | NUR ---
Maycol torres in [facility] - 06/24/19 at 1125 by [id number] Jonathan am
--- NOTE | 2019-06-24 11:25 | NUR ---
Pt ambualted to and from restroom unassisted. Pt denies feeling dizzy or lightheaded.
[2019-06-24 11:40] LABS: CLARITY,URINE SLIGHTLY CLOUDY (Clear); COLOR,URINE YELLOW (Yellow); GLUCOSE, URINE NEGATIVE (Neg); KETONES,URINE NEGATIVE (Neg); LEUKOCYTE ESTERASE ,URINE TRACE (Neg); NITRITES, URINE NEGATIVE (Neg); OCCULT BLOOD,URINE NEGATIVE (Neg); PH,URINE 7.5 (4.8-8.0); PROTEIN,URINE NEGATIVE (Neg)
[2019-06-24 11:43] LABS: UA COLLECTION TYPE CLN CATCH MIDSTREAM
[2019-06-24 11:49] LABS: BACTERIA,URINE FEW /HPF (Neg); MUCUS STRANDS FEW /LPF (Neg); RBC,URINE NONE SEEN /HPF (0-2); SQUAMOUS EPITHELIAL CELL,UR FEW /LPF (FEW); STARCH,URINE MODERATE /HPF (NEGATIVE); WBC,URINE 0-4 /HPF (0-4)
[2019-06-24 13:40] VITALS: BP 109/70
== END 2019-06-24 13:42 | disposition home or self-care (01) ==
LOC: ER 09:34
DX: S09.90XA Unspecified injury of head, initial encounter (principal); R55 Syncope and collapse; R10.12 Left upper quadrant pain; K21.9 Gastro-esophageal reflux disease without esophagitis; G89.29 Other chronic pain; F41.9 Anxiety disorder, unspecified; F32.9 Major depressive disorder, single episode, unspecified; Z90.49 Acquired absence of other specified parts of digestive tract; Z98.0 Intestinal bypass and anastomosis status; Z98.890 Other specified postprocedural states; Z91.011 Allergy to milk products; Z79.899 Other long term (current) drug therapy; W18.39XA Other fall on same level, initial encounter; Y93.89 Activity, other specified; Y92.89 Other specified places as the place of occurrence of the external cause; Y99.8 Other external cause status
CPT/HCPCS: 36415; 70450; 71045; 80053; 81001; 85025; 85610; 85730; 87088; 93005; 99284

== ENCOUNTER 2020-10-27 21:20 | Emergency (ER) | payer MEDICAID ==
[~2020-10-27] VITALS: Ht 162.6 cm; Wt 67.0 kg
[~2020-10-27 21:20] MED LIST changes: +MELA3TAB39 PO; -MELA3TAB64 PO
--- NOTE | 2020-10-27 21:23 | NUR ---
pt to room, assumed care.
[2020-10-27 21:24] VITALS: BP 97/48
[2020-10-27] MEDS ORDERED: oxyCODONE/APAP 10/325mg tablet PO ONE (21:50)
== END 2020-10-27 23:33 | disposition home or self-care (01) ==
LOC: ER 21:20
DX: S82.841A Displaced bimalleolar fracture of right lower leg, initial encounter for closed fracture (principal); K21.9 Gastro-esophageal reflux disease without esophagitis; G89.29 Other chronic pain; M54.9 Dorsalgia, unspecified; D64.9 Anemia, unspecified; F41.9 Anxiety disorder, unspecified; F32.9 Major depressive disorder, single episode, unspecified; Z91.040 Latex allergy status; X58.XXXA Exposure to other specified factors, initial encounter; Y93.89 Activity, other specified; Y92.89 Other specified places as the place of occurrence of the external cause; Y99.8 Other external cause status
CPT/HCPCS: 29515; 73610; 93005; 99284

== ENCOUNTER 2020-11-01 22:30 | Emergency (ER) | payer MEDICAID ==
[~2020-11-01] VITALS: Ht 162.6 cm; Wt 67.3 kg
[2020-11-01 22:46] VITALS: BP 116/57
== END 2020-11-02 00:52 | disposition home or self-care (01) ==
LOC: ER 22:30
DX: S82.841A Displaced bimalleolar fracture of right lower leg, initial encounter for closed fracture (principal); K21.9 Gastro-esophageal reflux disease without esophagitis; G89.29 Other chronic pain; F41.9 Anxiety disorder, unspecified; F32.9 Major depressive disorder, single episode, unspecified; Z86.2 Personal history of diseases of the blood and blood-forming organs and certain disorders involving the immune mechanism; Z90.89 Acquired absence of other organs; Z90.49 Acquired absence of other specified parts of digestive tract; Z98.890 Other specified postprocedural states; Z72.89 Other problems related to lifestyle; Z91.011 Allergy to milk products; Z91.018 Allergy to other foods; Z79.899 Other long term (current) drug therapy; W19.XXXA Unspecified fall, initial encounter; Y93.89 Activity, other specified; Y92.89 Other specified places as the place of occurrence of the external cause; Y99.8 Other external cause status
CPT/HCPCS: 99284

== ENCOUNTER 2021-04-04 22:44 | Emergency (ER) | payer MEDICAID ==
[~2021-04-04] VITALS: Ht 162.6 cm; Wt 54.2 kg
[~2021-04-04 22:44] MED LIST changes: +DOCU-262 PO; -DOCU-267 PO
[2021-04-04 22:48] VITALS: BP 117/71
[2021-04-04 23:47] LABS: BASOPHILS % (AUTO) 0.6 % (0-1); EOSINOPHILS % (AUTO) 0.7 % (0-6); HEMATOCRIT 27.2 % (35.0-45.0); HEMOGLOBIN 8.3 g/dl (12.0-16.0); LYMPHOCYTES # (AUTO) 2.3 X10'3 (1.1-4.8); LYMPHOCYTES % (AUTO) 34.1 % (21-51); MEAN CORPUSCULAR HEMOGLOBIN 20.2 PG (27.0-31.0); MEAN CORPUSCULAR HGB CONC 30.4 g/dL (33.0-36.5); MEAN CORPUSCULAR VOLUME 66.6 FL (78-98); MEAN PLATELET VOLUME 7.8 FL (7.4-10.4); MONOCYTES # (AUTO) 0.5 X10'3 (0-0.9); MONOCYTES % (AUTO) 7.4 % (2-12); NEUTROPHILS # (AUTO) 3.8 X10'3 (1.8-7.7); NEUTROPHILS % (AUTO) 57.2 % (42-75); PLATELET COUNT 306 X10'3 (140-440); RED BLOOD COUNT 4.08 X10'6 (4.20-5.60); RED CELL DISTRIBUTION WIDTH 18.4 % (11.5-14.5); WHITE BLOOD COUNT 6.7 X10'3 (4.5-11.0)
[2021-04-04 23:54] LABS: URINE HCG NEGATIVE (NEG)
[2021-04-04 23:57] LABS: CLARITY,URINE CLEAR (Clear); COLOR,URINE YELLOW (Yellow); GLUCOSE, URINE NEGATIVE (Neg); KETONES,URINE NEGATIVE (Neg); LEUKOCYTE ESTERASE ,URINE NEGATIVE (Neg); NITRITES, URINE NEGATIVE (Neg); OCCULT BLOOD,URINE NEGATIVE (Neg); PROTEIN,URINE NEGATIVE (Neg); UA COLLECTION TYPE CLN CATCH MIDSTREAM; UROBILINOGEN,URINE 0.2 E.U/dL (0.2-1.0)
[2021-04-05] LABS: ALANINE AMINOTRANSFERASE 34 U/L (12-78); ALBUMIN 3.3 G/DL (3.4-5.0); ALBUMIN/GLOBULIN RATIO 0.8 (1.1-1.5); ALKALINE PHOSPHATASE 172 IU/L (46-116); ANION GAP 9 (8-16); ASPARTATE AMINO TRANSFERASE 31 U/L (10-37); BILIRUBIN,TOTAL 0.2 MG/DL (0.1-1.0); BLOOD UREA NITROGEN 17 MG/DL (7-18); CALCIUM 8.3 MG/DL (8.5-10.1); CHLORIDE 109 MMOL/L (99-107); CREATININE 0.81 MG/DL (0.40-0.90); GLUCOSE 101 MG/DL (70-104); LIPASE 657 U/L (73-393); POTASSIUM 4.2 MMOL/L (3.5-5.1); SODIUM 143 MMOL/L (135-145); TOTAL CARBON DIOXIDE 24.6 MMOL/L (24-32); TOTAL PROTEIN 7.3 G/DL (6.4-8.2); eGFR 74 ML/MIN
[2021-04-05 00:49] LABS: HYPOCHROMASIA 1+; PLATELET ESTIMATE NORMAL
[2021-04-05 00:50] LABS: ANISOCYTOSIS 2+; ELLIPTOCYTES 1+; MICROCYTOSIS 2+; POIKILOCYTOSIS 1+
[2021-04-05] MEDS ORDERED: normal saline 1000ml 1,000 ML IV ONE (00:50)
[2021-04-05] MEDS ORDERED: ondansetron/PF 4mg/2ml inj IV ONE (00:50)
[2021-04-05] MEDS ORDERED: morphine 4 MG/ML inj SYRINge IV ONE (00:50)
[2021-04-05] MEDS ORDERED: iohexol 300mg/ml 100ml inj. ONE (01:23)
== END 2021-04-05 07:23 | disposition left against medical advice (07) ==
LOC: ER 22:45
DX: R10.13 Epigastric pain (principal); R11.2 Nausea with vomiting, unspecified; K21.9 Gastro-esophageal reflux disease without esophagitis; G89.29 Other chronic pain; F41.9 Anxiety disorder, unspecified; Z86.2 Personal history of diseases of the blood and blood-forming organs and certain disorders involving the immune mechanism; Z90.89 Acquired absence of other organs; Z90.49 Acquired absence of other specified parts of digestive tract; Z98.890 Other specified postprocedural states; Z72.89 Other problems related to lifestyle; Z91.011 Allergy to milk products; Z91.010 Allergy to peanuts; Z91.018 Allergy to other foods; Z79.899 Other long term (current) drug therapy
CPT/HCPCS: 36415; 80053; 81003; 81025; 83690; 85008; 85025; 99281; 99283; Q9967

== ENCOUNTER 2021-10-11 19:02 | Emergency (ER) | payer MEDICAID ==
[~2021-10-11] VITALS: Ht 162.6 cm; Wt 70.0 kg
[2021-10-11 19:04] VITALS: BP 100/60
== END 2021-10-11 22:15 | disposition home or self-care (01) ==
LOC: ER 19:03
DX: S83.91XA Sprain of unspecified site of right knee, initial encounter (principal); M25.561 Pain in right knee; K21.9 Gastro-esophageal reflux disease without esophagitis; G89.29 Other chronic pain; F41.9 Anxiety disorder, unspecified; F32.A Depression, unspecified; F17.200 Nicotine dependence, unspecified, uncomplicated; Z86.2 Personal history of diseases of the blood and blood-forming organs and certain disorders involving the immune mechanism; Z90.89 Acquired absence of other organs; Z90.49 Acquired absence of other specified parts of digestive tract; Z98.890 Other specified postprocedural states; Z72.89 Other problems related to lifestyle; Z91.011 Allergy to milk products; Z91.018 Allergy to other foods; Z79.899 Other long term (current) drug therapy; W19.XXXA Unspecified fall, initial encounter; Y93.89 Activity, other specified; Y92.89 Other specified places as the place of occurrence of the external cause; Y99.8 Other external cause status
CPT/HCPCS: 29505; 73564; 99284

== ENCOUNTER 2022-03-16 20:24 | Emergency (ER) | payer MEDICAID ==
[~2022-03-16] VITALS: Ht 162.6 cm; Wt 68.2 kg
[2022-03-16 21:07] VITALS: BP 109/62
== END 2022-03-16 23:25 | disposition left against medical advice (07) ==
LOC: ER 20:25
DX: H57.12 Ocular pain, left eye (principal); Z53.21 Procedure and treatment not carried out due to patient leaving prior to being seen by health care provider